=== PATIENT | female | born 1995 ===

== ENCOUNTER 2020-05-17 11:28 | Emergency (ER) | payer MEDICARE, MEDICAID, SELFPAY ==
[2020-05-17 11:42] VITALS: BP 150/75; PULSE 63; RESP 18; TEMP 36.7; O2SAT 99; BMI 26.6
--- NOTE | 2020-05-17 12:08 | ED.GENADULT ---
HPI - General Adult General Chief complaint: General Medical Stated complaint: std Time Seen by Provider: 05/17/20 11:40 Source: patient Mode of arrival: ambulatory Limitations: no limitations History of Present Illness HPI narrative: 24 yo female here with genital itching and urinary frequency. She tells me 3 days ago she had unprotected sex with a female partner. She does not have any male partners and is not concerned for . No vaginal discharge, bumps, rashes, pelvic pain, vomiting, fevers, chills. Onset (ago): day(s) Treatments prior to arrival: none Related Data Allergies Allergy/AdvReac Type Severity Reaction Status Date / Time penicillin V Allergy Unknown hives Verified 02/20/20 14:45 Penicillins [PENICILLINS] Allergy Unknown HIVES Verified 02/20/20 14:45 Review of Systems Review of Systems: Yes all other systems are reviewed and are negative Constitutional: Constitutional: Reports no additional constitutional complaints, Denies body ache(s), Denies chills, Denies fever(s), Denies headache(s) and Denies weakness Eyes: Eyes: Reports no additional eye complaints and Denies change in vision ENT: Reports system reviewed and no additional complaints, except as documented, Denies dizziness, Denies headache(s), Denies nasal congestion, Denies nasal discharge and Denies neck pain Cardiovascular: Cardiovascular: Reports no additional cardiovascular complaints, Denies chest pain, Denies leg edema and Denies dyspnea Respiratory: Respiratory: Reports no additional respiratory complaints, Denies cough and Denies dyspnea Gastrointestinal: Gastrointestinal: Reports no additional gastrointestinal complaints, Denies abdominal pain, Denies diarrhea, Denies nausea and Denies vomiting Genitourinary: Genitourinary: Reports no additional female genitourinary complaints, Denies difficulty voiding, Denies dysuria, Denies pelvic pain, Denies flank pain, Denies urinary incontinence, Denies vaginal discharge, Denies vaginal odor and Reports vaginal pruritus Musculoskeletal: Musculoskeletal: Reports no additional musculoskeletal complaints, Denies back pain, Denies arthralgias, Denies joint swelling, Denies neck pain, Denies numbness and Denies tingling Integumentary/Breasts: Skin/Breast: Reports system reviewed and no additional complaints, except as docu and Denies rash Neurologic: Reports system reviewed and no additional complaints, except as documented, Denies Abnormal speech present, Denies dizziness, Denies headache(s), Denies numbness, Denies tingling and Denies weakness PMFSH Past Medical History Attestation statement: The following information was validated with the patient. Source: old records reviewed and nursing notes reviewed Medical History Asthma Surgical History No pertinent past surgical history Family History Family History Father Liver failure H/O ETOH abuse Drug addiction Mother Cancer Drug addiction Brother Drug overdose Social History Social History Advance Directives: No Advance Directives Information Provided: Yes Physical Exam Vital Signs: Vital Signs: Last Vital Signs Temp 98.1 F 05/17/20 11:42 Pulse 63 05/17/20 11:42 Resp 18 05/17/20 11:42 BP 150/75 H 05/17/20 11:42 Pulse Ox 99 05/17/20 11:42 Body Mass Index 26.6 Const: General: cooperative, healthy appearing, comfortable and no acute distress Orientation/consciousness: patient oriented x3 Limitations: no limitations HENMT: Head: Yes normal to inspection Ears: hearing grossly normal bilaterally General nose exam: Normal external nose present Face and sinus: Yes normal facial exam Mouth: Normal oral and palatal mucosa present Throat: Yes posterior oropharynx normal Eyes: General: appearance normal, both eyes and all related structures Pupils: Equal, round and reactive pupils present Neck: Neck: Yes normal visual inspection Chest: Chest palpation & inspection: normal inspection of the chest Resp: Effort & Inspection: normal respiratory effort Auscultation: clear to auscultation bilaterally Cardio: Rate: regular rate Rhythm: regular rhythm Peripheral pulses: Peripheral pulses 2+ throughout GI: Inspection: Yes normal to inspection Palpation (GI): Soft to palpation and nontender Auscultation: normal bowel sounds : Other: deferred by patient Back/Spine/Pelvis: Thoracic/Lumbar Spine: thoracic and lumbar spine normal to inspection Skin: General skin exam: no rashes or lesions noted Neuro: General: patient oriented x3, no focal motor deficits and normal sensation to monofilament Cranial nerves: Yes Equal, round and reactive pupils present Cognition (Neuro): normal cognition Speech: No Abnormal speech present Gait exam (Neuro): Normal gait present Motor exam (neuro): 5/5 motor strength present throughout Extrem: General: Yes normal to inspection Course Course Course Narrative: 24 yo female recent unprotected sex with a female partner here with urinary frequency, vaginal itching x several days. Will check UA, GC urine, BV panel. Patient would like to defer treatment and is aware she will need to return for treatment if needed. [id number] negative for infection. Again patient deferred treatment. Reviewed worrisome signs and symptoms and when to return to the emergency department. Comfortable discharge home. Medical Decision Making Medical Records Medical records reviewed: Yes I reviewed the patient's medical records. Lab Data Lab results reviewed: Yes I reviewed the patient's lab results. Labs: Lab Results 05/17/20 05/17/20 Range/Units 12:26 12:26 Urine Color YELLOW Urine Appearance CLEAR Urine pH 5.5 (5.0-8.0) Ur Specific [place] >= 1.030 H (1.005-1.025) Urine Protein NEG (NEG-TRACE) MG/DL Urine Glucose (UA) NEG (NEG) MG/DL Urine Ketones NEG (NEG) MG/DL Urine Blood 1+ H (NEG) Urine Nitrite NEG (NEG) Ur Leukocyte Esterase NEG (NEG) Urine RBC 0-2 (0) /HPF Urine WBC 0-2 (0-4) /HPF Ur Squamous Epith Cells 1+ /LPF Urine Bacteria TRACE /LPF Urine Mucus 2+ /LPF Chlam trachomat DNA PCR Cancelled N.gonorrhoeae DNA (PCR) Cancelled Discharge Plan Discharge Clinical Impression: Concern about STD in female without diagnosis Patient Disposition: Home, Self-Care Instructions: Sexually Transmitted Diseases (ED) Additional Instructions: We have tested you today for gonorrhea/chlamydia, and vaginal infections in most women. We will call you if these are positive. If you are positive for gonorrhea you will need to return for an injection. If you are positive for all else we can call in a prescription for pills. Avoid sex until you know what your results are. If positive you will need a re-test in 7 days at [facility]. Referrals: Physician,Unknown [Primary Care Provider] - 2 days Interventions: ED Discharge Assessment Last Done: 05/17/20 13:22 Discharge Date/Time: 05/17/20 13:22
[2020-05-17 12:37] LABS: Glucose Urine UA NEG (NEG); Leukocyte Esterase Urine NEG (NEG); Nitrite Urine NEG (NEG); PH 5.5 (5.0-8.0); Specific Gravity - Urine >= 1.030 (1.005-1.025); Urine Blood 1+ (NEG); Urine Ketones NEG (NEG); Urine Protein NEG (NEG-TRACE)
[2020-05-17 12:39] LABS: Appearance Urine CLEAR; Color Urine YELLOW
[2020-05-17 12:52] LABS: Bacteria Urine TRACE /LPF; Mucus Urine 2+ /LPF; RBC Urine 0-2 /HPF (0); Squamous Epithelial Cell Urine 1+ /LPF; WBC Urine 0-2 /HPF (0-4)
[2020-05-18 09:31] LABS: BV Int Neg Control Negative (Negative); BV Int Pos Control Positive (Positive)
[2020-05-19 01:22] LABS: C. trachomatis RNA TMA NOT DETECTED (NOT DETECTED); N. gonorrhoeae RNA TMA NOT DETECTED (NOT DETECTED)
== END 2020-05-17 13:22 | disposition home or self-care (01) ==
PROVIDERS: Nurse Practitioner Family; Emergency Provider Emergency Medicine
DX: Z11.3 Encounter for screening for infections with a predominantly sexual mode of transmission (principal)
CPT/HCPCS: 36415; 81001; 87480; 87491; 87510; 87591; 87660; 99283

== ENCOUNTER 2020-06-06 19:41 | Emergency (ER) | payer MEDICARE, MEDICAID, SELFPAY ==
--- NOTE | ~2020-06-06 | CT_ITS ---
EXAMINATION: CT SOFT TISSUE NECK WITH CONTRAST CLINICAL INFORMATION: Lower face and neck swelling. Retropharyngeal abscess. Dental abscess COMPARISON: None TECHNIQUE: Following the intravenous administration of 100 mL of Omnipaque 350 intravenous contrast, helical imaging was performed in the axial plane with generation of coronal and sagittal reformatted images. This CT examination was performed using dose optimization techniques as appropriate, variously including the following: *Automated exposure control *Adjustment of mA and/or kV according to patient size (this includes techniques or standardized protocols for targeted exams where dose is matched to indication/reason for exam; i.e. extremities or head) *Use of iterative reconstruction technique DLP: 415 mGy-cm FINDINGS: No cervical adenopathy is identified. The parotid glands are homogeneous in attenuation. The submandibular glands are normal. No contour abnormality or pathologic enhancement is seen within the oral cavity or pharyngeal mucosal space. The laryngeal structures are normal. The parapharyngeal fat is preserved. The carotid sheath vasculature opacify normally. Symmetric prominent bilateral tonsillar soft tissues. No extra mucosal soft tissue mass or fluid collection is seen. No retropharyngeal fluid collection is seen. 4 mm low-density lesion posteriorly in the left thyroid.. The superior mediastinum is unremarkable. There is a right maxillary sinus mucous retention cyst or polyp. No acute sinusitis. The mastoid air cells and visualized portions of the paranasal sinuses are otherwise well-aerated. There are prominent subcutaneous venous collaterals in the anterior aspect of the upper chest and lower neck but no venous obstruction seen. The temporomandibular joints are normal. No periapical disease is identified. No osseous abnormalities are seen. The imaged portions of the brain parenchyma are unremarkable. 4 mm right upper lobe nodule, likely benign without a history of known primary malignancy given the patient's age. CT/CT soft tissue neck w con IMPRESSION: There are prominent subcutaneous venous collaterals in the anterior upper chest and lower neck but no venous obstruction seen. No retropharyngeal abscess. No periapical lucency to suggest periodontal disease.
[2020-06-06 19:51] VITALS: BP 118/88; BP 122/77; PULSE 84; PULSE 89; RESP 16; TEMP 36.2; O2SAT 98; O2SAT 99; BMI 25.7
[2020-06-06 20:38] LABS: MANUAL DIFF FLAG NO
[2020-06-06 20:39] LABS: Basophils Percent Auto 0.3 % (0-2); Eosinophils Absolute Auto 0.1 X10*3/uL (0.0-0.4); Eosinophils Percent Auto 0.6 % (0-4); Hematocrit 40.8 % (37-47); Hemoglobin 14.1 g/dl (12.0-16.0); Imm Gran Abs Auto 0.06 X10*3/uL (0.00-0.03); Imm Gran Pct Auto 0.5 % (0.0-0.4); Lymphocytes Absolute Auto 1.5 X10*3/uL (1.2-4.9); Mean Corpuscular HGB Conc 34.6 g/dl (31.0-35.0); Mean Corpuscular Hemoglobin 32.6 pg (27.0-33.0); Mean Corpuscular Volume 94.2 fL (80-98); Mean Platelet Volume 9.6 fL (9.4-12.3); Monocytes Absolute Auto 0.6 X10*3/uL (0.1-1.2); Monocytes Percent Auto 5.1 % (2-11); Neutrophils Absolute Auto 9.5 X10*3/uL (2.0-8.3); Neutrophils Percent Auto 80.5 % (45-73); Platelet Count 172 X10*3/uL (160-400); Red Blood Count 4.33 X10*6/uL (4.20-5.50); White Blood Count 11.8 X10*3/uL (4.8-10.8)
[2020-06-06] MEDS: Clindamycin Phosphate/D5W 600 MG/50 ML PIGGYBACK 100 MG IV (20:41)
[2020-06-06] MEDS: 0.9 % Sodium Chloride 1,000 ML 999 ML IV (20:41)
[2020-06-06] MEDS: Ketorolac Tromethamine 30 MG/ML VIAL IVPUSH (20:41)
[2020-06-06 20:47] LABS: INTERNATIONAL NORM RATIO 1.1 (0.9-1.1); Prothrombin Time 12.8 SEC (10.8-13.0)
[2020-06-06 20:50] LABS: Partial Thromboplastin Time 34.4 SEC (24.1-38.0)
[2020-06-06 21:03] LABS: Alanine Aminotransferase 46 U/L (0-31); Albumin Level 4.1 g/dL (3.5-5.0); Alkaline Phosphatase 91 U/L (39-117); Anion Gap 15 (12-20); Aspartate Amino Transferase 49 U/L (5-31); Bilirubin Total 1.7 mg/dL (0.0-1.0); Blood Urea Nitrogen 11 mg/dL (9-16); Calcium 8.8 mg/dL (8.4-10.2); Carbon Dioxide 22 mmol/L (22-29); Chloride 107 mmol/L (96-108); Creatinine Clr Calc Pharmacy 131.2; Estimated Glomerular Filt Rate > 60; Glucose Random 86 mg/dL (60-115); Potassium 4.2 mmol/L (3.3-5.1); Sodium 140 mmol/L (135-145); Total Protein 6.5 g/dL (6.5-8.0)
[2020-06-06 21:09] LABS: HCG Quantitative < 2 mIU/mL
--- NOTE | 2020-06-06 21:48 | ED.GENADULT ---
HPI - General Adult General Chief complaint: Dental/Oral Stated complaint: mouth pain Time Seen by Provider: 06/06/20 19:53 Source: patient Mode of arrival: ambulatory Limitations: no limitations History of Present Illness HPI narrative: Patient presents to ED for right lower facial swelling since yesterday that is painful. Patient states she does believe her neck is swollen also. He denies any recent trauma to the face, itchy sensation of throat, itchiness of skin, rash, shortness of breath, tongue swelling, or lip swelling. Patient denies any chest pain, shortness of breath, headache, ear pain, or dizziness. Related Data Previous Rx's Medication Instructions Recorded metronidazole [Flagyl] 500 mg PO Q12H #14 tab 05/20/20 clindamycin HCl 300 mg PO Q8H #30 cap 06/06/20 naproxen 500 mg PO BID PRN #20 tab 06/06/20 Allergies Allergy/AdvReac Type Severity Reaction Status Date / Time penicillin V Allergy Unknown hives Verified 06/06/20 19:51 Penicillins [PENICILLINS] Allergy Unknown HIVES Verified 06/06/20 19:51 Review of Systems Review of Systems: Yes all other systems are reviewed and are negative Constitutional: Constitutional: Reports as per HPI and Reports no additional constitutional complaints Eyes: Eyes: Reports as per HPI and Reports no additional eye complaints ENT: Reports system reviewed and no additional complaints, except as documented and Reports as per HPI Comments: Right facial swelling Cardiovascular: Cardiovascular: Reports as per HPI and Reports no additional cardiovascular complaints Respiratory: Respiratory: Reports as per HPI and Reports no additional respiratory complaints Gastrointestinal: Gastrointestinal: Reports as per HPI and Reports no additional gastrointestinal complaints Genitourinary: Genitourinary: Reports no additional female genitourinary complaints and Reports as per HPI Musculoskeletal: Musculoskeletal: Reports no additional musculoskeletal complaints and Reports as per HPI Neurologic: Reports system reviewed and no additional complaints, except as documented and Reports as per HPI Psychiatric: Psychiatric: Reports no additional psychiatric complaints and Reports as per HPI PMF Past Medical History Medical History Asthma Surgical History No pertinent past surgical history Family History Family History Father Liver failure H/O ETOH abuse Drug addiction Mother Cancer Drug addiction Brother Drug overdose Social History Social History Smoking Status: Current every day smoker Use of substances other than those prescribed or required for medical reasons: No Advance Directives: No Physical Exam Vital Signs: Vital Signs: Last Vital Signs Temp 96.5 F L 06/06/20 22:00 Pulse 84 06/06/20 22:00 Resp 16 06/06/20 22:00 BP 106/61 06/06/20 22:00 Pulse Ox 98 06/06/20 22:00 Body Mass Index 25.7 Const: General: cooperative, healthy appearing, comfortable, no acute distress, well developed, alert, awake and Physically active Orientation/consciousness: patient oriented x3 HENMT: Other: Positive for swelling of right lower side of face, but negative for any erythema or mass on palpation. Negative for any gum swelling, erythema, or mass. Negative for any caries or cracked tooth. Negative for any obvious tooth infection Neck does not appear swollen. Lips negative for swelling. Tongue negative for swelling. Uvula is midline. Tonsils are not swollen and negative for erythema or exudates. Both ears negative for signs of otitis media, otitis externa, tympanic perforation, or mastoiditis. Head: Yes normal to inspection, Yes No palpable skull fracture present, Yes normocephalic, Yes atraumatic and No abrasion Eyes: General: appearance normal, both eyes and all related structures Neck: Neck: Yes normal visual inspection, Yes full ROM, Yes no lymphadenopathy, Yes no meningeal signs, Yes trachea midline, Yes supple and No tender Resp: Effort & Inspection: normal respiratory effort and able to speak in complete sentences Auscultation: clear to auscultation bilaterally Cardio: Jugular venous distension: no JVD Heart sounds: S1 normal heart sound present and S2 normal heart sound present GI: Inspection: Yes normal to inspection and No abdominal wall ecchymosis Palpation (GI): Soft to palpation, not firm, nontender, no guarding and not rigid : General: No CVA tenderness and Yes no CVA tenderness Back/Spine/Pelvis: Back: no CVA tenderness, No CVA tenderness and No back tenderness Skin: General skin exam: no rashes or lesions noted and elasticity normal Neuro: General: patient oriented x3, gait normal, no meningeal signs and CN's II-XI intact bilaterally Cranial nerves: Yes CN's II-XII intact bilaterally Extrem: General: Yes normal to inspection and Yes full ROM Psych: Appearance: grossly normal, well kempt and not disheveled Course Course Course Narrative: Negative for obvious signs of facial or oral abscess. Will send for facial CT and have basic labs. Patient start IV clindamycin. Differential is facial cellulitis. Reevaluation(s) Reevaluation #1: Soft tissue neck negative for CT negative any periodontal or retropharyngeal abscess. Parotid glands are normal. Findings for any peritonsillar abscess. Diagnosis facial cellulitis. Patient discharged with antibiotics and pain meds. Patient speaking in full sentences and not in any respiratory distress. Patient not actively drooling. Patient informed she could follow up with dentist to make sure there is any wisdom tooth impaction. But no obvious signs of infection on physical exam for wisdom impaction. Time: 23:24 Medical Decision Making [facility] Narrative Medical decision making narrative: Facial cellulitis Lab Data Result diagrams: 06/06/20 20:25 06/06/20 20:25 Labs: Lab Results 06/06/20 06/06/20 06/06/20 Range/Units 20:25 20:25 20:25 WBC 11.8 H (4.8-10.8) X10*3/uL RBC 4.33 (4.20-5.50) X10*6/uL Hgb 14.1 (12.0-16.0) g/dl Hct 40.8 (37-47) % MCV 94.2 (80-98) fL MCH 32.6 (27.0-33.0) pg MCHC 34.6 (31.0-35.0) g/dl RDW 13.0 (11.0-16.0) % Plt Count 172 (160-400) X10*3/uL MPV 9.6 (9.4-12.3) fL Immature Gran % (Auto) 0.5 H (0.0-0.4) % Neut % (Auto) 80.5 H (45-73) % Lymph % (Auto) 13.0 L (20-40) % [place] % (Auto) 5.1 (2-11) % Eos % (Auto) 0.6 (0-4) % Baso % (Auto) 0.3 (0-2) % Lymph # (Auto) 1.5 (1.2-4.9) X10*3/uL [place] # (Auto) 0.6 (0.1-1.2) X10*3/uL Eos # (Auto) 0.1 (0.0-0.4) X10*3/uL Baso # (Auto) 0.0 (0.0-0.2) X10*3/uL Abs Immat Gran (auto) 0.06 H (0.00-0.03) X10*3/uL Absolute Neuts (auto) 9.5 H (2.0-8.3) X10*3/uL Absolute Nucleated RBC 0.000 (0.0-0.012) X10*3/uL Nucleated RBC % (auto) 0.0 (0.0-0.2) /100WBC PT 12.8 (10.8-13.0) SEC INR 1.1 (0.9-1.1) APTT 34.4 (24.1-38.0) SEC Sodium 140 (135-145) mmol/L Potassium 4.2 (3.3-5.1) mmol/L Chloride 107 (96-108) mmol/L Carbon Dioxide 22 (22-29) mmol/L Anion Gap 15 (12-20) BUN 11 (9-16) mg/dL Creatinine 0.65 (0.5-1.4) mg/dL Estim Creat Clear Calc 131.2 Estimated GFR > 60 Random Glucose 86 (60-115) mg/dL Calcium 8.8 (8.4-10.2) mg/dL Total Bilirubin 1.7 H (0.0-1.0) mg/dL AST 49 H (5-31) U/L ALT 46 H (0-31) U/L Alkaline Phosphatase 91 (39-117) U/L Total Protein 6.5 (6.5-8.0) g/dL Albumin 4.1 (3.5-5.0) g/dL Beta HCG, Quant mIU/mL 06/06/20 Range/Units 20:25 WBC (4.8-10.8) X10*3/uL RBC (4.20-5.50) X10*6/uL Hgb (12.0-16.0) g/dl Hct (37-47) % MCV (80-98) fL MCH (27.0-33.0) pg MCHC (31.0-35.0) g/dl RDW (11.0-16.0) % Plt Count (160-400) X10*3/uL MPV (9.4-12.3) fL Immature Gran % (Auto) (0.0-0.4) % Neut % (Auto) (45-73) % Lymph % (Auto) (20-40) % [place] % (Auto) (2-11) % Eos % (Auto) (0-4) % Baso % (Auto) (0-2) % Lymph # (Auto) (1.2-4.9) X10*3/uL [place] # (Auto) (0.1-1.2) X10*3/uL Eos # (Auto) (0.0-0.4) X10*3/uL Baso # (Auto) (0.0-0.2) X10*3/uL Abs Immat Gran (auto) (0.00-0.03) X10*3/uL Absolute Neuts (auto) (2.0-8.3) X10*3/uL Absolute Nucleated RBC (0.0-0.012) X10*3/uL Nucleated RBC % (auto) (0.0-0.2) /100WBC PT (10.8-13.0) SEC INR (0.9-1.1) APTT (24.1-38.0) SEC Sodium (135-145) mmol/L Potassium (3.3-5.1) mmol/L Chloride (96-108) mmol/L Carbon Dioxide (22-29) mmol/L Anion Gap (12-20) BUN (9-16) mg/dL Creatinine (0.5-1.4) mg/dL Estim Creat Clear Calc Estimated GFR Random Glucose (60-115) mg/dL Calcium (8.4-10.2) mg/dL Total Bilirubin (0.0-1.0) mg/dL AST (5-31) U/L ALT (0-31) U/L Alkaline Phosphatase (39-117) U/L Total Protein (6.5-8.0) g/dL Albumin (3.5-5.0) g/dL Beta HCG, Quant < 2 mIU/mL Discharge Plan Discharge Clinical Impression: Facial cellulitis Patient Disposition: Home, Self-Care Instructions: Cellulitis (ED) Additional Instructions: Return to the ED immediately for worsening facial swelling, drooling, shortness of breath, tongue swelling, lip swelling, chest pain, weakness, fever, chills, inability tolerate solid food/liquid, or any other concerning symptoms. No obvious signs of dental infection but if necessary follow-up with dentist. Follow-up with PCP. CT scan of the neck and face was negative for any dental or retropharyngeal abscess. CT scan negative for peritonsillar abscess. Prescriptions: New clindamycin HCl 300 mg capsule 300 mg PO Q8H Qty: 30 RF: 0 naproxen 500 mg tablet 500 mg PO BID PRN (Reason: pain) Qty: 20 RF: 0 No Action metronidazole [Flagyl] 500 mg tablet 500 mg PO Q12H Qty: 14 RF: 0 Stand Alone Forms: Work/School Release Interventions: ED Discharge Assessment Last Done: 06/07/20 00:03 Discharge Date/Time: 06/07/20 00:06 Print Language: Bel[place]ian
[2020-06-06 22:00] VITALS: BP 106/61; PULSE 84; RESP 16; TEMP 35.8; O2SAT 98
[2020-06-06] MEDS: iohexoL 350 MG/ML 100 ML INFUS..BTL IV (22:02)
== END 2020-06-07 00:06 | disposition home or self-care (01) ==
PROVIDERS: Physician Assistant; Emergency Provider Internal Medicine
DX: K12.2 Cellulitis and abscess of mouth (principal); F17.200 Nicotine dependence, unspecified, uncomplicated
CPT/HCPCS: 36415; 70491; 80053; 84702; 85025; 85610; 85730; 87040; 96361; 96374; 96375; 99284; J1885; Q9967

== ENCOUNTER 2020-08-11 14:38 | Emergency (ER) | payer OTHER, SELFPAY ==
--- NOTE | 2020-08-11 15:40 | PC.NURSE ---
1ST CALL TO [facility] NOT IN WR
[2020-08-11 15:41] VITALS: BP 122/84; PULSE 73; RESP 16; TEMP 36.6; O2SAT 98; BMI 25.0
--- NOTE | 2020-08-11 16:46 | ED.EYEPROB ---
HPI - Eye Problem General Chief complaint: Eye Problems Stated complaint: PINK EYE Time Seen by Provider: 08/11/20 16:46 Source: patient Mode of arrival: ambulatory Limitations: no limitations History of Present Illness HPI Narrative: Woke up with some crust in the right eye and vaginally over the past 2 days became more red and crusty discharge. Tried some OTC medication did not help. Denies any contact usage, foreign body concern. No vision loss or changes. No headache. Isolated to the right eye. MD chief complaint: eye redness Onset description: gradual Duration: constant Location: right eye Eye Symptoms: redness and discharge Mechanism: none Severity: moderate Associated symptoms: none Treatments Prior to Arrival: none Related Data Previous Rx's Medication Instructions Recorded metronidazole [Flagyl] 500 mg PO Q12H #14 tab 05/20/20 clindamycin HCl 300 mg PO Q8H #30 cap 06/06/20 naproxen 500 mg PO BID PRN #20 tab 06/06/20 erythromycin 0.5 inch OPHTHALMIC (EYE) Q4H #3.5 08/11/20 g Allergies Allergy/AdvReac Type Severity Reaction Status Date / Time penicillin V Allergy Unknown hives Verified 06/06/20 19:51 Penicillins [PENICILLINS] Allergy Unknown HIVES Verified 06/06/20 19:51 Review of Systems Review of Systems: Constitutional: No Weight loss, No Fever, No Chills, No Night Sweats, No Fatigue, No Malaise ENT/Mouth: No Hearing loss, No Ear Pain, No Nasal Congestion, No Sinus Pain, No Hoarseness, No sore throat, No Rhinorrhea, No Swallowing Difficulty Eyes: No Eye Pain, No Swelling, + Redness, No Foreign Body, No Discharge, No Vision Changes Cardiovascular: No Chest Pain, No SOB, No Dyspnea on Exertion, No Orthopnea, No Edema, No Palpitations Respiratory: No Cough, No Sputum, No Wheezing, No Smoke Exposure, No Dyspnea Gastrointestinal: No Nausea, No Vomiting, No Diarrhea, No Constipation, No abdominal Pain, No Hematochezia, No Melena Genitourinary: Negative Musculoskeletal: No joint pain, No Myalgias, No Joint Swelling Skin: No Skin Lesions, No rash Neuro: No Weakness, No Numbness, No Paresthesias, No Loss of Consciousness, No Dizziness, No Headache Psych: No Social Issues Heme/Lymph: No Bruising, No Bleeding,No Lymphadenopathy Endocrine: No Polyuria, No Polydipsia, No Temperature Intolerance [facility] Past Medical History Medical History Asthma Surgical History No pertinent past surgical history Family History Family History Father Liver failure H/O ETOH abuse Drug addiction Mother Cancer Drug addiction Brother Drug overdose Social History Social History Smoking Status: Current every day smoker Advance Directives: No Advance Directives Information Provided: Yes Physical Exam Vital Signs: Vital Signs: Last Vital Signs Temp 98 F 08/11/20 15:41 Pulse 73 08/11/20 15:41 Resp 16 08/11/20 15:41 BP 122/84 08/11/20 15:41 Pulse Ox 98 08/11/20 15:41 Body Mass Index 25.0 Reviewed Const: General: cooperative, healthy appearing, comfortable, no acute distress, well developed, alert and awake HENMT: Head: Yes normal to inspection Ears: hearing grossly normal bilaterally Eyes: General: appearance normal, both eyes and all related structures Visual Sen: normal visual sen by confrontation Eyelids: Yes eyelids normal Conjunctivae: conjunctival abnormal (Slightly injected and erythematous) right Sclerae: sclerae normal Corneas: corneas normal Pupils: Equal, round and reactive pupils present EOM: EOMs intact bilaterally Direct Ophthalmoscopy: normal light reflex Neck: Neck: Yes normal visual inspection Chest: Chest palpation & inspection: normal inspection of the chest and normal palpation of entire chest wall Resp: Effort & Inspection: normal respiratory effort, no audible wheezes, no cough and no respiratory distress Skin: General skin exam: no rashes or lesions noted, elasticity normal and turgor normal Wounds: no wounds Nails: normal Neuro: General: normal sensation to monofilament Cranial nerves: Yes Equal, round and reactive pupils present Extrem: General: No cyanosis Psych: Appearance: grossly normal and well kempt Discharge Plan Discharge Clinical Impression: Bacterial conjunctivitis Patient Disposition: Home, Self-Care Instructions: Conjunctivitis (ED) Additional Instructions: User eye ointment to the right eye every 4 hours while awake Keep hands clean and dry Return if any concerns or symptoms otherwise follow up with primary care doctor discussed Thank you Prescriptions: New erythromycin 5 mg/gram (0.5 %) ointment 0.5 inch ophthalmic (eye) Q4H Qty: 3.5 RF: 1 No Action metronidazole [Flagyl] 500 mg tablet 500 mg PO Q12H Qty: 14 RF: 0 clindamycin HCl 300 mg capsule 300 mg PO Q8H Qty: 30 RF: 0 naproxen 500 mg tablet 500 mg PO BID PRN (Reason: pain) Qty: 20 RF: 0 Referrals: ED Physician,Generic [Emergency Provider] - 1 week
== END 2020-08-11 17:25 | disposition home or self-care (01) ==
PROVIDERS: Emergency Provider Emergency Medicine
DX: H10.31 Unspecified acute conjunctivitis, right eye (principal); H57.11 Ocular pain, right eye
CPT/HCPCS: 99283

== ENCOUNTER 2020-12-08 14:14 | Inpatient (IN) | payer OTHER, SELFPAY ==
[2020-12-08] VITALS (7 sets, daily range): BP systolic 98–135; BP diastolic 56–83; PULSE 73–107; RESP 14–20; TEMP 36.3; O2SAT 97–100; BMI 25.0
--- NOTE | 2020-12-08 14:38 | PC.NURSE ---
pt not SI at this time was last night feeling more depressed
--- NOTE | 2020-12-08 15:14 | ECG_ITS ---
Test Reason : OVERDOSE Blood Pressure : / mmHG Vent. Rate : 073 BPM Atrial Rate : 073 BPM P-R Int : 132 ms QRS Dur : 092 ms QT Int : 460 ms P-R-T Axes : 070 064 036 degrees QTc Int : 506 ms Normal sinus rhythm Prolonged QT Abnormal ECG When compared with ECG of 23-JAN-2019 05:25, T wave inversion no longer evident in Inferior leads Referred By: Leatha Condon Electronically Signed By:MANDO MARINO MD
[2020-12-08] MEDS: 0.9 % Sodium Chloride 1,000 ML 999 ML IVCONT (15:30)
--- NOTE | 2020-12-08 15:40 | PC.NURSE ---
Contact made to [facility] at 1530: aleks haines : Monitor Qtc to be less than 500 ideally, mag level to be greater than 2 and K greater than 4. If less, electolyte replacement is to be ordered. Take serial asa levels 2 hrs, until peak is noted and clearly declining. ASA level greater than 30- Start alkalizing urine by administering sodium bicarb Greater than 60-call nephrology Greater than 90-emergent dialysis is needed. Concerns for clindamycin- monitor renal function and consider gi upset. Concerns for naproxen- monitor renal function and metabolic acidosis.
--- NOTE | 2020-12-08 16:09 | ED.OVERDOSE ---
HPI - Overdose General Chief Complaint: Overdose Stated Complaint: Overdose Time Seen by Provider: 12/08/20 15:13 Source: patient and EMS Mode of arrival: EMS Limitations: no limitations History of Present Illness HPI Narrative: Patient is brought to the emergency room by EMS. According to the patient, she took approximately 20 aspirins, unknown amount of naproxen, unknown amount of clindamycin, all this in a suicide attempt, patient took this approximately between 03:00 and 05:00 (approximately 12 hours ago). Patient states after the suicide attempt, she went to sleep, when she woke up she was very nauseous, vomiting. Patient denies abdominal pain, no diarrhea. Patient states that approximately 1 month ago, she had medical , and since then she has been depressed and not doing well. She reports having suicidal attempts in the past. Patient states she is being seen by a therapist but does not have a psychiatrist, has not been on any medications for depression/anxiety. Related Data Home Medications Medication Instructions Recorded Confirmed No Known Home Meds 11/30/20 11/30/20 Allergies Allergy/AdvReac Type Severity Reaction Status Date / Time penicillin V Allergy Unknown hives Verified 11/30/20 10:15 Penicillins [PENICILLINS] Allergy Unknown HIVES Verified 11/30/20 10:15 Review of Systems Review of Systems: Constitutional : No Weight loss, No Fever, No Chills, No Night Sweats, No Fatigue, No Malaise ENT/Mouth : No Hearing loss, No Ear Pain, No Nasal Congestion, No Sinus Pain, No Hoarseness, No sore throat, No Rhinorrhea, No Swallowing Difficulty Eyes: No Eye Pain, No Swelling, No Redness, No Foreign Body, No Discharge, No Vision Changes Cardiovascular : No Chest Pain, No SOB, No Dyspnea on Exertion, No Orthopnea, No Edema, No Palpitations Respiratory : No Cough, No Sputum, No Wheezing, No Smoke Exposure, No Dyspnea Gastrointestinal : Complaining of nausea vomiting, No Diarrhea, No Constipation, No abdominal Pain, No Hematochezia, No Melena Genitourinary : no irregular bleeding, No Dysuria, No Urinary Frequency, No Hematuria, No Urinary Incontinence, No Urgency, No Flank Pain, No Urinary Flow Changes, No Hesitancy Musculoskeletal : No joint pain, No Myalgias, No Joint Swelling Skin : No Skin Lesions, No rash Neuro : No Weakness, No Numbness, No Paresthesias, No Loss of Consciousness, No Dizziness, No Headache Psych : Complaining depression, anxiety, suicide attempt, no HI Heme/Lymph: No Bruising, No Bleeding,No Lymphadenopathy Endocrine : No Polyuria, No Polydipsia, No Temperature Intolerance PMFSH Past Medical History Medical History Asthma Screening for diabetes mellitus Screening for hyperlipidemia Screening for hypothyroidism Surgical History No pertinent past surgical history Family History Family History Father Liver failure H/O ETOH abuse Drug addiction Mother Cancer Drug addiction Brother Drug overdose Social History Social History (Updated 11/30/20 @ 10:18 by NAYELI Rice) Alcohol intake: current Alcohol intake frequency: holidays/special occasions only Patient Tobacco Use Status: Current everyday Tobacco user Advance Directives: No Advance Directives Information Provided: Yes Physical Exam Vital Signs: Vital Signs: Last Vital Signs Temp 97.4 F 12/08/20 17:06 Pulse 74 12/08/20 17:06 Resp 20 12/08/20 17:06 BP 123/65 12/08/20 17:06 Pulse Ox 98 12/08/20 17:06 Body Mass Index 25.0 Course Course Course Narrative: It has been over 12 hours since patient ingested the medications. All the labs are pending. Poison Control has been contacted Patient's salicylate level is 42.6, we will go ahead and order 1 bolus of sodium bicarbonate and IV infusion. I discussed the patient with Dr. Owen, patient being admitted. At this time, the ABGs are still pending. Patient is on a Section 12 MDM - Overdose Lab Data Result diagrams: 12/08/20 16:25 12/08/20 15:57 Labs: Lab Results 12/08/20 12/08/20 12/08/20 Range/Units 15:57 15:57 15:57 WBC (4.8-10.8) X10*3/uL RBC (4.20-5.50) X10*6/uL Hgb (12.0-16.0) g/dl Hct (37-47) % MCV (80-98) fL MCH (27.0-33.0) pg MCHC (31.0-35.0) g/dl RDW (11.0-16.0) % Plt Count (160-400) X10*3/uL MPV (9.4-12.3) fL Immature Gran % (Auto) (0.0-0.4) % Neut % (Auto) (45-73) % Lymph % (Auto) (20-40) % [place] % (Auto) (2-11) % Eos % (Auto) (0-4) % Baso % (Auto) (0-2) % Lymph # (Auto) (1.2-4.9) X10*3/uL [place] # (Auto) (0.1-1.2) X10*3/uL Eos # (Auto) (0.0-0.4) X10*3/uL Baso # (Auto) (0.0-0.2) X10*3/uL Abs Immat Gran (auto) (0.00-0.03) X10*3/uL Absolute Neuts (auto) (2.0-8.3) X10*3/uL Absolute Nucleated RBC (0.0-0.012) X10*3/uL Nucleated RBC % (auto) (0.0-0.2) /100WBC PT 12.2 (9.9-13.0) SEC INR 1.1 (0.9-1.1) Sodium 144 (135-145) mmol/L Potassium 4.6 (3.3-5.1) mmol/L Chloride 108 (96-108) mmol/L Carbon Dioxide 18 L (22-29) mmol/L Anion Gap 23 H (12-20) BUN 16 (9-16) mg/dL Creatinine 1.00 (0.5-1.4) mg/dL Estim Creat Clear Calc 78.0 Estimated GFR > 60 Random Glucose 79 (60-115) mg/dL Lactic Acid 1.6 (0.5-2.0) mmol/L Calcium 9.4 D (8.4-10.2) mg/dL Magnesium (1.6-2.6) mg/dL Total Bilirubin 0.6 (0.0-1.0) mg/dL Direct Bilirubin 0.3 (0.0-0.5) mg/dL AST 44 H (5-31) U/L ALT 37 H (0-31) U/L Alkaline Phosphatase 82 (39-117) U/L Ammonia (13-55) umol/L Total Protein 8.0 D (6.5-8.0) g/dL Albumin 5.0 D (3.5-5.0) g/dL Lipase 19 (8-78) U/L Salicylates (15-30) mg/dL Acetaminophen (<30) mcg/mL Ethyl Alcohol mg/dL 12/08/20 12/08/20 12/08/20 Range/Units 15:57 15:57 16:25 WBC 14.2 H (4.8-10.8) X10*3/uL RBC 4.67 (4.20-5.50) X10*6/uL Hgb 15.6 (12.0-16.0) g/dl Hct 44.8 (37-47) % MCV 95.9 (80-98) fL MCH 33.4 H (27.0-33.0) pg MCHC 34.8 (31.0-35.0) g/dl RDW 13.8 (11.0-16.0) % Plt Count 214 (160-400) X10*3/uL MPV 9.5 (9.4-12.3) fL Immature Gran % (Auto) 0.7 H (0.0-0.4) % Neut % (Auto) 89.2 H (45-73) % Lymph % (Auto) 6.6 L (20-40) % [place] % (Auto) 3.4 (2-11) % Eos % (Auto) 0.0 (0-4) % Baso % (Auto) 0.1 (0-2) % Lymph # (Auto) 0.9 L (1.2-4.9) X10*3/uL [place] # (Auto) 0.5 (0.1-1.2) X10*3/uL Eos # (Auto) 0.0 (0.0-0.4) X10*3/uL Baso # (Auto) 0.0 (0.0-0.2) X10*3/uL Abs Immat Gran (auto) 0.10 H (0.00-0.03) X10*3/uL Absolute Neuts (auto) 12.7 H (2.0-8.3) X10*3/uL Absolute Nucleated RBC 0.000 (0.0-0.012) X10*3/uL Nucleated RBC % (auto) 0.0 (0.0-0.2) /100WBC PT (9.9-13.0) SEC INR (0.9-1.1) Sodium (135-145) mmol/L Potassium (3.3-5.1) mmol/L Chloride (96-108) mmol/L Carbon Dioxide (22-29) mmol/L Anion Gap (12-20) BUN (9-16) mg/dL Creatinine (0.5-1.4) mg/dL Estim Creat Clear Calc Estimated GFR Random Glucose (60-115) mg/dL Lactic Acid (0.5-2.0) mmol/L Calcium (8.4-10.2) mg/dL Magnesium 2.3 (1.6-2.6) mg/dL Total Bilirubin (0.0-1.0) mg/dL Direct Bilirubin (0.0-0.5) mg/dL AST (5-31) U/L ALT (0-31) U/L Alkaline Phosphatase (39-117) U/L Ammonia (13-55) umol/L Total Protein (6.5-8.0) g/dL Albumin (3.5-5.0) g/dL Lipase (8-78) U/L Salicylates 42.6 H* (15-30) mg/dL Acetaminophen < 1 (<30) mcg/mL Ethyl Alcohol < 10 mg/dL 12/08/20 Range/Units 16:25 WBC (4.8-10.8) X10*3/uL RBC (4.20-5.50) X10*6/uL Hgb (12.0-16.0) g/dl Hct (37-47) % MCV (80-98) fL MCH (27.0-33.0) pg MCHC (31.0-35.0) g/dl RDW (11.0-16.0) % Plt Count (160-400) X10*3/uL MPV (9.4-12.3) fL Immature Gran % (Auto) (0.0-0.4) % Neut % (Auto) (45-73) % Lymph % (Auto) (20-40) % [place] % (Auto) (2-11) % Eos % (Auto) (0-4) % Baso % (Auto) (0-2) % Lymph # (Auto) (1.2-4.9) X10*3/uL [place] # (Auto) (0.1-1.2) X10*3/uL Eos # (Auto) (0.0-0.4) X10*3/uL Baso # (Auto) (0.0-0.2) X10*3/uL Abs Immat Gran (auto) (0.00-0.03) X10*3/uL Absolute Neuts (auto) (2.0-8.3) X10*3/uL Absolute Nucleated RBC (0.0-0.012) X10*3/uL Nucleated RBC % (auto) (0.0-0.2) /100WBC PT (9.9-13.0) SEC INR (0.9-1.1) Sodium (135-145) mmol/L Potassium (3.3-5.1) mmol/L Chloride (96-108) mmol/L Carbon Dioxide (22-29) mmol/L Anion Gap (12-20) BUN (9-16) mg/dL Creatinine (0.5-1.4) mg/dL Estim Creat Clear Calc Estimated GFR Random Glucose (60-115) mg/dL Lactic Acid (0.5-2.0) mmol/L Calcium (8.4-10.2) mg/dL Magnesium (1.6-2.6) mg/dL Total Bilirubin (0.0-1.0) mg/dL Direct Bilirubin (0.0-0.5) mg/dL AST (5-31) U/L ALT (0-31) U/L Alkaline Phosphatase (39-117) U/L Ammonia 23 (13-55) umol/L Total Protein (6.5-8.0) g/dL Albumin (3.5-5.0) g/dL Lipase (8-78) U/L Salicylates (15-30) mg/dL Acetaminophen (<30) mcg/mL Ethyl Alcohol mg/dL Discharge Plan Discharge Clinical Impression: Overdose of salicylate, Metabolic acidosis due to salicylate, Suicide attempt Patient Disposition: Admitted As Inpatient Prescriptions: No Action No Known Home Meds RF: 0
[2020-12-08 16:14] LABS: INTERNATIONAL NORM RATIO 1.1 (0.9-1.1); Prothrombin Time 12.2 SEC (9.9-13.0)
[2020-12-08 16:31] LABS: Lactic Acid 1.6 mmol/L (0.5-2.0)
[2020-12-08 16:34] LABS: Ethanol < 10 mg/dL
[2020-12-08 16:35] LABS: MANUAL DIFF FLAG NO
[2020-12-08 16:37] LABS: Basophils Percent Auto 0.1 % (0-2); Hematocrit 44.8 % (37-47); Hemoglobin 15.6 g/dl (12.0-16.0); Imm Gran Pct Auto 0.7 % (0.0-0.4); Lymphocytes Absolute Auto 0.9 X10*3/uL (1.2-4.9); Lymphocytes Percent Auto 6.6 % (20-40); Mean Corpuscular HGB Conc 34.8 g/dl (31.0-35.0); Mean Corpuscular Hemoglobin 33.4 pg (27.0-33.0); Mean Corpuscular Volume 95.9 fL (80-98); Mean Platelet Volume 9.5 fL (9.4-12.3); Monocytes Absolute Auto 0.5 X10*3/uL (0.1-1.2); Monocytes Percent Auto 3.4 % (2-11); Neutrophils Absolute Auto 12.7 X10*3/uL (2.0-8.3); Neutrophils Percent Auto 89.2 % (45-73); Platelet Count 214 X10*3/uL (160-400); Red Blood Count 4.67 X10*6/uL (4.20-5.50); Red Cell Distribution Width 13.8 % (11.0-16.0); White Blood Count 14.2 X10*3/uL (4.8-10.8)
[2020-12-08 16:40] LABS: Acetaminophen LAB < 1 mcg/mL (<30); Magnesium 2.3 mg/dL (1.6-2.6); Salicylate 42.6 mg/dL (15-30)
[2020-12-08 16:42] LABS: Alanine Aminotransferase 37 U/L (0-31); Alkaline Phosphatase 82 U/L (39-117); Anion Gap 23 (12-20); Aspartate Amino Transferase 44 U/L (5-31); Bilirubin Direct 0.3 mg/dL (0.0-0.5); Bilirubin Total 0.6 mg/dL (0.0-1.0); Blood Urea Nitrogen 16 mg/dL (9-16); Calcium 9.4 mg/dL (8.4-10.2); Carbon Dioxide 18 mmol/L (22-29); Chloride 108 mmol/L (96-108); Estimated Glomerular Filt Rate > 60; Glucose Random 79 mg/dL (60-115); Lipase 19 U/L (8-78); Potassium 4.6 mmol/L (3.3-5.1); Sodium 144 mmol/L (135-145)
[2020-12-08] MEDS: Prochlorperazine Edisylate 10 MG/2 ML VIAL IVPUSH (16:44)
[2020-12-08 16:52] LABS: Ammonia 23 umol/L (13-55)
[2020-12-08] MEDS: Sodium Bicarbonate 8.4% 50 MEQ/50 ML VIAL 100 MEQ IVPUSH (17:12)
--- NOTE | 2020-12-08 17:15 | PC.NURSE ---
hospitalist at bedside
[2020-12-08 17:18] LABS: Glucose Urine UA NEG (NEG); Leukocyte Esterase Urine NEG (NEG); Nitrite Urine NEG (NEG); PH 6.5 (5.0-8.0); Specific Gravity - Urine >= 1.030 (1.005-1.025); UACC Culture Trigger NO; Urine Blood 3+ (NEG); Urine Ketones >=80 MG/DL (NEG); Urine Protein 2+ MG/DL (NEG-TRACE)
[2020-12-08 17:21] LABS: Appearance Urine HAZY; Color Urine YELLOW
[2020-12-08 17:24] LABS: UPreg QC Valid YES; Urine Pregnancy POSITIVE (NEGATIVE)
[2020-12-08 17:32] LABS: Bacteria Urine TRACE /LPF; Squamous Epithelial Cell Urine 1+ /LPF; WBC Urine 0-2 /HPF (0-4)
[2020-12-08 17:42] LABS: Amphetamine Screen Urine Not Detected (Not Detect); Barbiturates, Urine Not Detected (Not Detect); Benzodiazepines Screen Urine Not Detected (Not Detect); Cannabinoid Screen Urine POSITIVE (Not Detect); Cocaine Screen Urine POSITIVE (Not Detect); Fentanyl, urine Not Detected (Not Detect); Opiate Screen Urine Not Detected (Not Detect); Phencyclidine Screen Urine Not Detected (Not Detect)
[2020-12-08] MEDS: Sodium Bicarbonate 8.4% 150 MEQ in Dextrose 5 % 850 ML 100 MEQ IV (18:20)
[2020-12-08 18:42] LABS: ABG Base Excess -0.7 mmol/L; ABG HCO3 20 mmol/L (22-26); ABG pCO2 25 mmHg (32-45); ABG pCO2 TC 25 mmHg (32-45); ABG pH TC 7.51 (7.35-7.45); ABG pO2 147 mmHg (83-108); ABG pO2 TC 143 (83-108)
--- NOTE | 2020-12-08 18:43 | PC.NURSE ---
per patient what the fuck? i didn't know i could from this when asked to expand upon above statement pt stated I thought it would only kill me in the momement.
[2020-12-08 19:12] LABS: HCG Quantitative 15 mIU/mL
--- NOTE | 2020-12-08 19:18 | PC.NURSE ---
Posion control: iris 1900 Give Charcoal 1g/kg Repeat charcoal in 4hrs if need monitor serum ph to keep between 7.45-7.55 Urine PH 7.5-8 Monitor k with bicarb drip due to potential to drop. Continue q 2hr blood draws for asa level. monitor asa if between 80-90, dialysis is needed emergency, monitor for neuro symptoms in addition. MD notified.
--- NOTE | 2020-12-08 19:25 | PC.NURSE ---
md craft-no to eliane.
--- NOTE | 2020-12-08 19:38 | PC.NURSE ---
Iris from posion control called back Nolan ACOSTA recommends to treat with charcoal. Provider aware; due to timing provider stated it is not nessicary to give acyteldote and charcoal due to timing of injestion and that the patient did not consume tylenol. Plan to track down [facility] if possible.
[2020-12-08 19:43] LABS: Anion Gap 19 (12-20); Blood Urea Nitrogen 18 mg/dL (9-16); Calcium 8.4 mg/dL (8.4-10.2); Carbon Dioxide 24 mmol/L (22-29); Chloride 105 mmol/L (96-108); Creatinine Clr Calc Pharmacy 90.7; Estimated Glomerular Filt Rate > 60; Glucose Random 204 mg/dL (60-115); Potassium 3.8 mmol/L (3.3-5.1); Sodium 144 mmol/L (135-145)
[2020-12-08 19:44] LABS: Osmolality, Serum 305 mosm/kg (281-305)
[2020-12-08 20:00] LABS: Influenza A PCR NEGATIVE (Negative); Influenza B PCR NEGATIVE (Negative); Resp Syncy Virus RNA Qual PCR NEGATIVE (Negative); SARS COV2 PCR INHOUSE NEGATIVE (Negative)
[2020-12-08] MEDS: Famotidine/PF 20 MG/2 ML VIAL IVPUSH (20:09)
--- NOTE | 2020-12-08 20:24 | HP_ITS ---
DATE OF SERVICE: 12/08/2020 CHIEF COMPLAINT: Salicylate overdose. HISTORY OF PRESENTING ILLNESS: This is a 25-year-old female patient of Dr. Bush, who was seen at PCP office 1 week ago for a wellness check. The patient was brought into [facility] today by her friend due to intractable nausea and vomiting. According to the patient, she took unknown quantity of aspirin, Naprosyn, and clindamycin as a suicide attempt roughly at 3 a.m. After that, she went to sleep and she woke up with intractable nausea, vomiting. Her friend saw her and brought her to the emergency room. According to patient, she has been depressed and not doing well with prior history of suicide attempts in the past. In the ER, workup revealed that she has an elevated salicylate level of 42.6. Her urine tox was positive for cocaine and marijuana. Her labs showed anion gap metabolic acidosis with normal renal function. Mildly elevated AST and ALT. Her urinalysis is positive for 10 to 14 rbc, urine test is positive, although the ER physician was told by patient's friend that she had a medical done a few weeks ago. PAST MEDICAL HISTORY: Significant for asthma. PAST SURGICAL HISTORY: She has had no surgeries done in the past. FAMILY HISTORY: Father is . He of liver failure and had history of alcohol dependence and drug addiction. Mother is . She had leukemia. Brother is due to drug overdose. SOCIAL HISTORY: She lives alone. She smokes a couple of cigarettes a day. She also drinks alcohol 3 to 4 times per week. She smokes weeds few times a week. She denied use of other illicit drugs. However, as mentioned, urine toxicology positive for cocaine. ALLERGIES: SHE IS ALLERGIC TO PENICILLIN THAT CAUSES HIVES. MEDICATIONS: The patient do not take any home medications. REVIEW OF SYSTEMS: TOP FRAME FITTER: She denies any headache, but complains of dizziness. CVS: She denies chest pain or palpitation. GI: She continued to have nausea, vomiting. Denies abdominal pain. No diarrhea. : She denies urinary symptoms of urgency and frequency. SKIN: She denies any rashes or itching. Rest of all other systems are reviewed and are negative. PHYSICAL EXAMINATION: GENERAL: The patient is awake and alert, at times does not respond to questions and start putting on her socks. Does not make eye contacts, very restless. VITALS: Her blood pressure is 123/65, pulse of 74, respiratory rate 20, afebrile, O2 saturation 98% on room air. HEENT: Pupils equal, round, and reactive to light and accommodation. NECK: Supple. No JVD. No lymphadenopathy. LUNGS: Clear to auscultation. HEART: Regular rate and rhythm. ABDOMEN: Soft. Multiple striae due to stretching likely from . EXTREMITIES: No edema. NEURO: The patient is awake, alert. Speech is clear. Moving all 4 extremities. SKIN: No rash. LABORATORY DATA: Salicylate level 42.6. WBC 42326, hemoglobin 15.6, hematocrit 44, platelet count of 214. Sodium 144, potassium 4.6, anion gap 23, bicarb 18, BUN 16, and a creatinine of 1. Lactic acid 1.6, AST 44, ALT 37, albumin 5.. EKG showed no acute ischemic changes. Normal sinus rhythm, prolonged QT. ASSESSMENT AND PLAN: This is a 25-year-old female patient, who presented to [facility] with intractable nausea, vomiting, after overdosing on salicylates, Naprosyn, and unknown amount of clindamycin with suicidal ideation. 1. Salicylate overdose. The patient will be admitted to telemetry unit. She has been started on IV bicarb drip, will continue to monitor salicylate level every 2 hours and BMP q.4 hours, continue bicarb drip. We will check serum osmolality, urinary pH. Consulted Nephrology. Case discussed with them,they will follow the patient along with us. If the patient noted to have worsening shortness of breath, we will place her on BiPAP. If the patient has worsening salicylate level, then she will require hemodialysis. 2. Anion gap metabolic acidosis due to salicylate toxicity. We will follow ABGs, not obtained, will adjust IV fluids according to the ABG level. We will have low threshold for transferring her to ICU with any change in mental status or respiratory depression. 3. History of substance use. The patient's urine tox positive for cocaine and marijuana. We will obtain care team consult. 4. History of alcohol dependence. As per patient, she only drinks a few times a week with no prior history of DTs or seizures, we will place CIWA protocol. 5. Positive urine test. According to friend, the patient had a medical few weeks ago. We will check serum hCG level. We will avoid medications that are teratogenic. 6. Deep vein thrombosis prophylaxis. Early ambulation will be recommended. MD JW Pryor/ANA / [id number] MTDD
[2020-12-08 20:38] LABS: Salicylate 27.8 mg/dL (15-30)
[2020-12-08 21:33] LABS: ABG Refer to POC result
[2020-12-08 21:36] LABS: Salicylate 25.2 mg/dL (15-30)
[2020-12-08 22:24] LABS: Salicylate 24.6 mg/dL (15-30)
--- NOTE | 2020-12-08 22:26 | PC.NURSE ---
Per pharmacy: 3rd and 4th dose of sodium bicarb drip is in fridge under inventory count of tylenol 120mg rect suppository.
--- NOTE | 2020-12-08 22:47 | PC.NURSE ---
Per hospitalist, draw mery level now.
--- NOTE | 2020-12-08 22:56 | PC.NURSE ---
Per poison control: hold 3rd dose activated charcoal, due to 3 asa levels being below 30mg/dl okay to stop bicarb. Redraw K level and consider K replacement. At this point, as long as the asa level continues to down trend, pt is cleared by poison control. Per hospitalist: Contintue bicarb drip as nephrology ordered at 150ml/hr. at this time Draw BMP.
--- NOTE | 2020-12-08 23:03 | PC.NURSE ---
phlebotomy: contacted for BMP. Peng to come draw patient.
[2020-12-08 23:29] LABS: Salicylate 22.3 mg/dL (15-30)
[2020-12-08 23:48] LABS: Anion Gap 16 (12-20); Blood Urea Nitrogen 17 mg/dL (9-16); Calcium 8.3 mg/dL (8.4-10.2); Carbon Dioxide 24 mmol/L (22-29); Chloride 105 mmol/L (96-108); Creatinine Clr Calc Pharmacy 84.8; Estimated Glomerular Filt Rate > 60; Glucose Random 124 mg/dL (60-115); Potassium 3.3 mmol/L (3.3-5.1); Sodium 142 mmol/L (135-145)
[2020-12-09] VITALS (10 sets, daily range): BP systolic 96–128; BP diastolic 49–75; PULSE 54–81; RESP 12–20; TEMP 36.4–37.2; O2SAT 98–100
[2020-12-09] MEDS: Sodium Bicarbonate 8.4% 150 MEQ in Dextrose 5 % 850 ML 100 MEQ IV (01:02)
[2020-12-09] MEDS: 0.9 % Sodium Chloride Flush 3 ML SYRINGE IVFLUSH ×2 (01:04→07:22)
--- NOTE | 2020-12-09 01:05 | PC.NURSE ---
per poison control: consider K replacement due to lab value being 3.3
--- NOTE | 2020-12-09 01:07 | PC.NURSE ---
Hospitalist notified of pc reccomendations.
[2020-12-09] MEDS: Potassium Chloride/H20 10 MEQ/100 ML PIGGYBACK 100 MEQ IV ×4 (01:21→04:42)
--- NOTE | 2020-12-09 03:53 | PC.NURSE ---
REPORT TAKEN FROM MARIELY GUTIERREZ. FIRST CONTACT WITH PT. RESTING IN BED, EASILY AWOKE, SKIN PWD RESPIRATIONS EVEN UNLABORED.A&Ox3. MEDICATED PER MAR. IVF INFUSING WITHOUT DIFFICULTY. VSS. AWAITING REPEAT LABS. PO AT BEDSIDE FOR SAFETY.
--- NOTE | 2020-12-09 06:05 | PC.NURSE ---
PT CONTINUES TO REST IN BED EYES CLOSED SKIN PWD, RESPIRATIONS EVEN UNLABORED.VSS, WILL CONTINUE TO MONITOR.
--- NOTE | 2020-12-09 07:39 | PC.NURSE ---
pt a/o x 3 no sob/ghada noted skin pink warm dry speaks in full sentence. pt denies any si/hi. pt aware of plan for admission to hosp.
--- NOTE | 2020-12-09 08:06 | P.CONNP_ITS ---
History of Present Illness Reason for Consult Consult date: 12/09/20 Chief Complaint Chief complaint: Overdose History of Present Illness Narrative: 25-year-old female patient of Dr. Bush, who was seen at PCP office 1 week ago for a wellness check.? The patient was brought into [facility] today by her friend due to intractable nausea and vomiting.? According to the patient, she took unknown quantity of aspirin, Naprosyn, and clindamycin as a suicide attempt roughly at 3 a.m.? After that, she went to sleep and she woke up with intractable nausea, vomiting.? Her friend saw her and brought her to the emergency room.? According to patient, she has been depressed and not doing well with prior history of suicide attempts in the past.? In the ER, workup revealed that she has an elevated salicylate level of 42.6.? Her urine tox was positive for cocaine and marijuana.? Her labs showed anion gap metabolic acidosis with normal renal function.? Mildly elevated AST and ALT. Her urinalysis is positive for 10 to 14 rbc, urine test is positive, Review of Systems Review of Systems Constitutional : No Weight loss, No Fever, No Chills, No Night Sweats, No Fatigue, No Malaise ENT/Mouth : No Hearing loss, No Ear Pain, No Nasal Congestion, No Sinus Pain, No Hoarseness, No sore throat, No Rhinorrhea, No Swallowing Difficulty Eyes: No Eye Pain, No Swelling, No Redness, No Foreign Body, No Discharge, No Vision Changes Cardiovascular : No Chest Pain, No SOB, No Dyspnea on Exertion, No Orthopnea, No Edema, No Palpitations Respiratory : No Cough, No Sputum, No Wheezing, No Smoke Exposure, No Dyspnea Gastrointestinal : Complaining of nausea vomiting, No Diarrhea, No Constipation, No abdominal Pain, No Hematochezia, No Melena Genitourinary : no irregular bleeding, No Dysuria, No Urinary Frequency, No Hematuria, No Urinary Incontinence, No Urgency, No Flank Pain, No Urinary Flow Changes, No Hesitancy Musculoskeletal : No joint pain, No Myalgias, No Joint Swelling Skin : No Skin Lesions, No rash Neuro : No Weakness, No Numbness, No Paresthesias, No Loss of Consciousness, No Dizziness, No Headache Psych : Complaining depression, anxiety, suicide attempt, no HI Heme/Lymph: No Bruising, No Bleeding,No Lymphadenopathy Endocrine : No Polyuria, No Polydipsia, No Temperature Intolerance [facility] Past Medical History Medical History Asthma Screening for diabetes mellitus Screening for hyperlipidemia Screening for hypothyroidism Family History Family History Father Liver failure H/O ETOH abuse Drug addiction Mother Cancer Drug addiction Brother Drug overdose Surgical History Surgical History No pertinent past surgical history Social History Social History (Updated 11/30/20 @ 10:18 by NAYELI Rice) Alcohol intake: current Alcohol intake frequency: 0-2 drinks per day Patient Tobacco Use Status: Current everyday Tobacco user Use of substances other than those prescribed or required for medical reasons: Yes Substance Use Type: Crack/Cocaine and Marijuana Advance Directives: No Advance Directives Information Provided: Yes Meds Allergies Allergy/AdvReac Type Severity Reaction Status Date / Time penicillin V Allergy Unknown hives Verified 11/30/20 10:15 Penicillins [PENICILLINS] Allergy Unknown HIVES Verified 11/30/20 10:15 Active Medications: Current Medications Generic Name Dose Route Start Last Admin Trade Name Freq PRN Reason Stop Dose Admin Famotidine 20 mg 12/08/20 21:00 12/08/20 20:09 Famotidine/Pf 20 Mg/2 Ml Vial IVPUSH 20 mg BID FELICITAS Administration Sodium Bicarbonate 150 meq/ 1,000 mls @ 150 mls/hr 12/08/20 17:00 12/09/20 01:02 Dextrose IV 100 mls/hr .[id number] FELICITAS Administration Lorazepam 0.5 mg 12/08/20 17:56 Lorazepam 2 Mg/Ml Vial IVPUSH Q6H PRN Anxiety Ondansetron HCl 4 mg 12/08/20 17:49 Ondansetron Hcl 4 Mg/2 Ml Vial IVPUSH Q8H PRN Nausea and Vomiting Sodium Chloride 3 ml 12/09/20 00:00 12/09/20 07:22 0.9 % Sodium Chloride Flush 3 Ml Syringe IVFLUSH 3 ml QSHIFT FELICITAS Administration Home Medications Medication Instructions Recorded Confirmed Last Taken Type No Known Home Meds 11/30/20 12/08/20 Unknown History Physical Exam Vital Signs: Last Vital Signs Temp 98.1 F 12/09/20 07:23 Pulse 75 12/09/20 07:23 Resp 12 12/09/20 07:23 BP 96/51 L 12/09/20 07:23 Pulse Ox 100 12/09/20 07:23 Body Mass Index 25.0 Results Lab Results Result Diagrams: 12/08/20 16:25 12/08/20 23:15 Lab results: Chemistry 12/08/20 12/08/20 12/08/20 15:57 18:59 23:15 Sodium 144 144 142 Potassium 4.6 3.8 3.3 Carbon Dioxide 18 L 24 24 BUN 16 18 H 17 H Creatinine 1.00 0.86 0.92 Calcium 9.4 D 8.4 D 8.3 L Hematology 12/08/20 16:25 WBC 14.2 H Hgb 15.6 Plt Count 214 Urinalysis 12/08/20 17:08 Urine Color YELLOW Urine Appearance HAZY Urine pH 6.5 Ur Specific [place] >= 1.030 H Urine Protein 2+ H Urine Glucose (UA) NEG Urine Ketones >=80 Urine Blood 3+ H Urine Nitrite NEG Ur Leukocyte Esterase NEG Urine RBC 10-14 H Urine WBC 0-2 Ur Squamous Epith Cells 1+ Assessment and Plan (1) Overdose of salicylate: Status: Acute (2) Metabolic acidosis due to salicylate: Status: Acute (3) Suicide attempt: Status: Acute continue iv bicarb give 500 mg diamox iv to alkalize the urine Procedures Date of Service Date of Service: 12/09/20
[2020-12-09 08:21] LABS: Hematocrit 38.6 % (37-47); Hemoglobin 13.5 g/dl (12.0-16.0); Mean Corpuscular Hemoglobin 33.2 pg (27.0-33.0); Mean Corpuscular Volume 94.8 fL (80-98); Mean Platelet Volume 9.7 fL (9.4-12.3); Platelet Count 177 X10*3/uL (160-400); Red Blood Count 4.07 X10*6/uL (4.20-5.50); Red Cell Distribution Width 13.7 % (11.0-16.0)
[2020-12-09 08:42] LABS: Anion Gap 11 (12-20); Blood Urea Nitrogen 11 mg/dL (9-16); Calcium 8.3 mg/dL (8.4-10.2); Carbon Dioxide 29 mmol/L (22-29); Chloride 104 mmol/L (96-108); Creatinine Clr Calc Pharmacy 89.7; Estimated Glomerular Filt Rate > 60; Glucose Random 109 mg/dL (60-115); Potassium 3.5 mmol/L (3.3-5.1); Sodium 140 mmol/L (135-145)
[2020-12-09] MEDS: Sodium Bicarbonate 8.4% 150 MEQ in Dextrose 5 % 850 ML IV (10:15)
[2020-12-09] MEDS: Famotidine/PF 20 MG/2 ML VIAL IVPUSH ×2 (10:17→19:56)
--- NOTE | 2020-12-09 11:13 | PC.NURSE ---
pt is medically cleared per dr. beltran. [facility] paperwork to be faxed.
[2020-12-09] MEDS: 0.9 % Sodium Chloride 1,000 ML 125 ML IVCONT (11:15)
--- NOTE | 2020-12-09 13:22 | PM.CNNEP ---
History of Present Illness Reason for Consult Consult date: 12/09/20 Reason for consult: asa OD Chief Complaint Chief complaint: Overdose History of Present Illness Narrative: ?25-year-old female patient of Dr. Bush, who was seen at PCP office 1 week ago for a wellness check.? The patient was brought into [facility] today by her friend due to intractable nausea and vomiting.? According to the patient, she took unknown quantity of aspirin, Naprosyn, and clindamycin as a suicide attempt roughly at 3 a.m.? After that, she went to sleep and she woke up with intractable nausea, vomiting.? Her friend saw her and brought her to the emergency room.? According to patient, she has been depressed and not doing well with prior history of suicide attempts in the past.? In the ER, workup revealed that she has an elevated salicylate level of 42.6.? Her urine tox was positive for cocaine and marijuana.? Her labs showed anion gap metabolic acidosis with normal renal function.? Mildly elevated AST and ALT. Her urinalysis is positive for 10 to 14 rbc, urine test is positive, although the ER physician was told by patient's friend that she had a medical done a few weeks ago. Review of Systems Review of Systems Constitutional : No Weight loss, No Fever, No Chills, No Night Sweats, No Fatigue, No Malaise ENT/Mouth : No Hearing loss, No Ear Pain, No Nasal Congestion, No Sinus Pain, No Hoarseness, No sore throat, No Rhinorrhea, No Swallowing Difficulty Eyes: No Eye Pain, No Swelling, No Redness, No Foreign Body, No Discharge, No Vision Changes Cardiovascular : No Chest Pain, No SOB, No Dyspnea on Exertion, No Orthopnea, No Edema, No Palpitations Respiratory : No Cough, No Sputum, No Wheezing, No Smoke Exposure, No Dyspnea Gastrointestinal : Complaining of nausea vomiting, No Diarrhea, No Constipation, No abdominal Pain, No Hematochezia, No Melena Genitourinary : no irregular bleeding, No Dysuria, No Urinary Frequency, No Hematuria, No Urinary Incontinence, No Urgency, No Flank Pain, No Urinary Flow Changes, No Hesitancy Musculoskeletal : No joint pain, No Myalgias, No Joint Swelling Skin : No Skin Lesions, No rash Neuro : No Weakness, No Numbness, No Paresthesias, No Loss of Consciousness, No Dizziness, No Headache Psych : Complaining depression, anxiety, suicide attempt, no HI Heme/Lymph: No Bruising, No Bleeding,No Lymphadenopathy Endocrine : No Polyuria, No Polydipsia, No Temperature Intolerance PMFSH Past Medical History Medical History Asthma Screening for diabetes mellitus Screening for hyperlipidemia Screening for hypothyroidism Family History Family History Father Liver failure H/O ETOH abuse Drug addiction Mother Cancer Drug addiction Brother Drug overdose Surgical History Surgical History No pertinent past surgical history Social History Social History (Updated 11/30/20 @ 10:18 by NAYELI Rice) Alcohol intake: current Alcohol intake frequency: 0-2 drinks per day Patient Tobacco Use Status: Current everyday Tobacco user Use of substances other than those prescribed or required for medical reasons: Yes Substance Use Type: Crack/Cocaine and Marijuana Advance Directives: No Advance Directives Information Provided: Yes Meds Allergies Allergy/AdvReac Type Severity Reaction Status Date / Time penicillin V Allergy Unknown hives Verified 11/30/20 10:15 Penicillins [PENICILLINS] Allergy Unknown HIVES Verified 11/30/20 10:15 Active Medications: Current Medications Generic Name Dose Route Start Last Admin Trade Name Freq PRN Reason Stop Dose Admin Famotidine 20 mg 12/08/20 21:00 12/09/20 10:17 Famotidine/Pf 20 Mg/2 Ml Vial IVPUSH 20 mg BID FELICITAS Administration Sodium Chloride 1,000 mls @ 125 mls/hr 12/09/20 11:15 12/09/20 11:15 Ns IVCONT 125 mls/hr .Q8H FELICITAS Administration Lorazepam 0.5 mg 12/08/20 17:56 Lorazepam 2 Mg/Ml Vial IVPUSH Q6H PRN Anxiety Ondansetron HCl 4 mg 12/08/20 17:49 Ondansetron Hcl 4 Mg/2 Ml Vial IVPUSH Q8H PRN Nausea and Vomiting Sodium Chloride 3 ml 12/09/20 00:00 12/09/20 07:22 0.9 % Sodium Chloride Flush 3 Ml Syringe IVFLUSH 3 ml QSHIFT FELICITAS Administration Home Medications Medication Instructions Recorded Confirmed Last Taken Type No Known Home Meds 11/30/20 12/08/20 Unknown History Physical Exam Vital Signs: Last Vital Signs Temp 99.0 F 12/09/20 10:11 Pulse 78 12/09/20 13:05 Resp 16 12/09/20 13:05 BP 110/59 L 12/09/20 13:05 Pulse Ox 98 12/09/20 13:05 Body Mass Index 25.0 Results Lab Results Result Diagrams: 12/09/20 08:15 12/09/20 08:15 Lab results: Chemistry 12/08/20 12/08/20 12/08/20 15:57 18:59 23:15 Sodium 144 144 142 Potassium 4.6 3.8 3.3 Carbon Dioxide 18 L 24 24 BUN 16 18 H 17 H Creatinine 1.00 0.86 0.92 Calcium 9.4 D 8.4 D 8.3 L 12/09/20 08:15 Sodium 140 Potassium 3.5 Carbon Dioxide 29 BUN 11 Creatinine 0.87 Calcium 8.3 L Hematology 12/08/20 12/09/20 16:25 08:15 WBC 14.2 H 10.0 Hgb 15.6 13.5 Plt Count 214 177 Urinalysis 12/08/20 17:08 Urine Color YELLOW Urine Appearance HAZY Urine pH 6.5 Ur Specific [place] >= 1.030 H Urine Protein 2+ H Urine Glucose (UA) NEG Urine Ketones >=80 Urine Blood 3+ H Urine Nitrite NEG Ur Leukocyte Esterase NEG Urine RBC 10-14 H Urine WBC 0-2 Ur Squamous Epith Cells 1+ Assessment and Plan (1) Overdose of salicylate: Status: Acute alkalinize urine with normal hco3 diamox 500 mg IV to increase urine PH (2) Metabolic acidosis due to salicylate: Status: Acute (3) Suicide attempt: Status: Acute continue iv bicarb give 500 mg diamox iv to alkalize the urine Procedures Date of Service Date of Service: 12/09/20
--- NOTE | 2020-12-09 16:25 | HO.PM.IMPN ---
Subjective Subjective Date of Service: 12/09/20 Interval History: Patient complaining of heartburn, and epigastric discomfort, no nausea no vomiting, feels depressed and requesting for help. Review of Systems General no headache, no dizziness, no fever chills. CVS no chest pain, no palpitation. Respiratory no cough, no sob. Gastrointestinal no nausea, no vomiting, epigastric pain Physical Exam Vital Signs: Vital Signs: Last Vital Signs Temp 97.5 F 12/09/20 15:59 Pulse 54 12/09/20 15:59 Resp 18 12/09/20 15:59 BP 122/60 12/09/20 15:59 Pulse Ox 99 12/09/20 15:59 Body Mass Index 25.0 25-year-old female patient, who presented to [facility] with intractable nausea, vomiting, after overdosing on salicylates, Naprosyn, and unknown amount of clindamycin with suicidal ideation. 1. Intentional drug overdose.? Patient ingested unknown amount of salicylate, clindamycin and Naprosyn, treated with IV bicarb drip, Tylenol level normalized, renal function stable Will DC IV bicarb drip, encourage fluids, replace potassium Due to epigastric pain will add PPI and Maalox Obtain care team consult and psych consult since patient feels depressed and wants to be treated 2. Anion gap metabolic acidosis due to salicylate toxicity.? Aniongap closed, acidosis resolved , will DC bicarb drip, renal function is stable 3. History of substance use.? The patient's urine tox positive for cocaine and marijuana.?await care team evaluation 4. History of alcohol dependence.? No withdrawal symptoms, continue CIWA 5. Positive urine test.? Status post 4 weeks, normal serum hcg level 6. Deep vein thrombosis prophylaxis.? Early ambulation will be recommended. ? Objective Data Current Medications Generic Name Dose Route Start Last Admin Trade Name Freq PRN Reason Stop Dose Admin Famotidine 20 mg 12/08/20 21:00 12/09/20 10:17 Famotidine/Pf 20 Mg/2 Ml Vial IVPUSH 20 mg BID FELICITAS Administration Sodium Chloride 1,000 mls @ 125 mls/hr 12/09/20 11:15 12/09/20 11:15 Ns IVCONT 125 mls/hr .Q8H FELICITAS Administration Lorazepam 0.5 mg 12/08/20 17:56 Lorazepam 2 Mg/Ml Vial IVPUSH Q6H PRN Anxiety Ondansetron HCl 4 mg 12/08/20 17:49 Ondansetron Hcl 4 Mg/2 Ml Vial IVPUSH Q8H PRN Nausea and Vomiting Sodium Chloride 3 ml 12/09/20 00:00 12/09/20 07:22 0.9 % Sodium Chloride Flush 3 Ml Syringe IVFLUSH 3 ml QSHIFT FELICITAS Administration Labs CBC & Chem 7: 12/09/20 08:15 12/09/20 08:15 Labs: Laboratory Results - last 24 hr 12/08/20 12/08/20 12/08/20 15:57 15:57 15:57 MCV MCH MCHC RDW Plt Count MPV Immature Gran % (Auto) Neut % (Auto) Lymph % (Auto) [place] % (Auto) Eos % (Auto) Baso % (Auto) Lymph # (Auto) [place] # (Auto) Eos # (Auto) Baso # (Auto) Abs Immat Gran (auto) Absolute Neuts (auto) Absolute Nucleated RBC Nucleated RBC % (auto) O2 Saturation ABG pH at Pt Temp ABG pH (Temp Correct) ABG pCO2 at Pt Temp ABG pCO2 (Temp Corrct ABG pO2 at Pt Temp ABG pO2 (Temp Correct ABG HCO3 ABG Base Excess (Actual) Anion Gap 23 H Estim Creat Clear Calc 78.0 Estimated GFR > 60 Random Glucose 79 Osmolality Lactic Acid 1.6 Calcium 9.4 D Magnesium 2.3 Total Bilirubin 0.6 Direct Bilirubin 0.3 AST 44 H ALT 37 H Alkaline Phosphatase 82 Ammonia Total Protein 8.0 D Albumin 5.0 D Lipase 19 Beta HCG, Quant 15 Urine Color Urine Appearance Urine pH Ur Specific [place] Urine Protein Urine Glucose (UA) Urine Ketones Urine Blood Urine Nitrite Ur Leukocyte Esterase Urine RBC Urine WBC Ur Squamous Epith Cells Urine Bacteria Urine Test Salicylates 42.6 H* Urine Opiates Screen Urine Fentanyl Screen Acetaminophen < 1 Ur Barbiturates Screen Ur Phencyclidine Scrn Ur Amphetamines Screen U Benzodiazepines Scrn Urine Cocaine Screen U Marijuana (THC) Screen Ethyl Alcohol Coronavirus (PCR) Influenza Type A (PCR) Influenza Type B (PCR) RSV RNA Qual (PCR) 12/08/20 12/08/20 12/08/20 15:57 16:25 16:25 MCV 95.9 MCH 33.4 H MCHC 34.8 RDW 13.8 Plt Count 214 MPV 9.5 Immature Gran % (Auto) 0.7 H Neut % (Auto) 89.2 H Lymph % (Auto) 6.6 L [place] % (Auto) 3.4 Eos % (Auto) 0.0 Baso % (Auto) 0.1 Lymph # (Auto) 0.9 L [place] # (Auto) 0.5 Eos # (Auto) 0.0 Baso # (Auto) 0.0 Abs Immat Gran (auto) 0.10 H Absolute Neuts (auto) 12.7 H Absolute Nucleated RBC 0.000 Nucleated RBC % (auto) 0.0 O2 Saturation ABG pH at Pt Temp ABG pH (Temp Correct) ABG pCO2 at Pt Temp ABG pCO2 (Temp Corrct ABG pO2 at Pt Temp ABG pO2 (Temp Correct ABG HCO3 ABG Base Excess (Actual) Anion Gap Estim Creat Clear Calc Estimated GFR Random Glucose Osmolality Lactic Acid Calcium Magnesium Total Bilirubin Direct Bilirubin AST ALT Alkaline Phosphatase Ammonia 23 Total Protein Albumin Lipase Beta HCG, Quant Urine Color Urine Appearance Urine pH Ur Specific [place] Urine Protein Urine Glucose (UA) Urine Ketones Urine Blood Urine Nitrite Ur Leukocyte Esterase Urine RBC Urine WBC Ur Squamous Epith Cells Urine Bacteria Urine Test Salicylates Urine Opiates Screen Urine Fentanyl Screen Acetaminophen Ur Barbiturates Screen Ur Phencyclidine Scrn Ur Amphetamines Screen U Benzodiazepines Scrn Urine Cocaine Screen U Marijuana (THC) Screen Ethyl Alcohol < 10 Coronavirus (PCR) Influenza Type A (PCR) Influenza Type B (PCR) RSV RNA Qual (PCR) 12/08/20 12/08/20 12/08/20 17:08 17:08 17:08 MCV MCH MCHC RDW Plt Count MPV Immature Gran % (Auto) Neut % (Auto) Lymph % (Auto) [place] % (Auto) Eos % (Auto) Baso % (Auto) Lymph # (Auto) [place] # (Auto) Eos # (Auto) Baso # (Auto) Abs Immat Gran (auto) Absolute Neuts (auto) Absolute Nucleated RBC Nucleated RBC % (auto) O2 Saturation ABG pH at Pt Temp ABG pH (Temp Correct) ABG pCO2 at Pt Temp ABG pCO2 (Temp Corrct ABG pO2 at Pt Temp ABG pO2 (Temp Correct ABG HCO3 ABG Base Excess (Actual) Anion Gap Estim Creat Clear Calc Estimated GFR Random Glucose Osmolality Lactic Acid Calcium Magnesium Total Bilirubin Direct Bilirubin AST ALT Alkaline Phosphatase Ammonia Total Protein Albumin Lipase Beta HCG, Quant Urine Color YELLOW Urine Appearance HAZY Urine pH 6.5 Ur Specific [place] >= 1.030 H Urine Protein 2+ H Urine Glucose (UA) NEG Urine Ketones >=80 Urine Blood 3+ H Urine Nitrite NEG Ur Leukocyte Esterase NEG Urine RBC 10-14 H Urine WBC 0-2 Ur Squamous Epith Cells 1+ Urine Bacteria TRACE Urine Test POSITIVE H Salicylates Urine Opiates Screen Not Detected Urine Fentanyl Screen Not Detected Acetaminophen Ur Barbiturates Screen Not Detected Ur Phencyclidine Scrn Not Detected Ur Amphetamines Screen Not Detected U Benzodiazepines Scrn Not Detected Urine Cocaine Screen POSITIVE H U Marijuana (THC) Screen POSITIVE H Ethyl Alcohol Coronavirus (PCR) Influenza Type A (PCR) Influenza Type B (PCR) RSV RNA Qual (PCR) 12/08/20 12/08/20 12/08/20 18:34 18:42 18:59 MCV MCH MCHC RDW Plt Count MPV Immature Gran % (Auto) Neut % (Auto) Lymph % (Auto) [place] % (Auto) Eos % (Auto) Baso % (Auto) Lymph # (Auto) [place] # (Auto) Eos # (Auto) Baso # (Auto) Abs Immat Gran (auto) Absolute Neuts (auto) Absolute Nucleated RBC Nucleated RBC % (auto) O2 Saturation 99.0 ABG pH at Pt Temp 7.50 H ABG pH (Temp Correct) 7.51 H ABG pCO2 at Pt Temp 25 L ABG pCO2 (Temp Corrct 25 L ABG pO2 at Pt Temp 147 H ABG pO2 (Temp Correct 143 H ABG HCO3 20 L ABG Base Excess (Actual) -0.7 Anion Gap 19 Estim Creat Clear Calc 90.7 Estimated GFR > 60 Random Glucose 204 H D Osmolality Lactic Acid Calcium 8.4 D Magnesium Total Bilirubin Direct Bilirubin AST ALT Alkaline Phosphatase Ammonia Total Protein Albumin Lipase Beta HCG, Quant Urine Color Urine Appearance Urine pH Ur Specific [place] Urine Protein Urine Glucose (UA) Urine Ketones Urine Blood Urine Nitrite Ur Leukocyte Esterase Urine RBC Urine WBC Ur Squamous Epith Cells Urine Bacteria Urine Test Salicylates Urine Opiates Screen Urine Fentanyl Screen Acetaminophen Ur Barbiturates Screen Ur Phencyclidine Scrn Ur Amphetamines Screen U Benzodiazepines Scrn Urine Cocaine Screen U Marijuana (THC) Screen Ethyl Alcohol Coronavirus (PCR) NEGATIVE Influenza Type A (PCR) NEGATIVE Influenza Type B (PCR) NEGATIVE RSV RNA Qual (PCR) NEGATIVE 12/08/20 12/08/20 12/08/20 18:59 20:00 21:07 MCV MCH MCHC RDW Plt Count MPV Immature Gran % (Auto) Neut % (Auto) Lymph % (Auto) [place] % (Auto) Eos % (Auto) Baso % (Auto) Lymph # (Auto) [place] # (Auto) Eos # (Auto) Baso # (Auto) Abs Immat Gran (auto) Absolute Neuts (auto) Absolute Nucleated RBC Nucleated RBC % (auto) O2 Saturation ABG pH at Pt Temp ABG pH (Temp Correct) ABG pCO2 at Pt Temp ABG pCO2 (Temp Corrct ABG pO2 at Pt Temp ABG pO2 (Temp Correct ABG HCO3 ABG Base Excess (Actual) Anion Gap Estim Creat Clear Calc Estimated GFR Random Glucose Osmolality 305 Lactic Acid Calcium Magnesium Total Bilirubin Direct Bilirubin AST ALT Alkaline Phosphatase Ammonia Total Protein Albumin Lipase Beta HCG, Quant Urine Color Urine Appearance Urine pH Ur Specific [place] Urine Protein Urine Glucose (UA) Urine Ketones Urine Blood Urine Nitrite Ur Leukocyte Esterase Urine RBC Urine WBC Ur Squamous Epith Cells Urine Bacteria Urine Test Salicylates 27.8 25.2 Urine Opiates Screen Urine Fentanyl Screen Acetaminophen Ur Barbiturates Screen Ur Phencyclidine Scrn Ur Amphetamines Screen U Benzodiazepines Scrn Urine Cocaine Screen U Marijuana (THC) Screen Ethyl Alcohol Coronavirus (PCR) Influenza Type A (PCR) Influenza Type B (PCR) RSV RNA Qual (PCR) 12/08/20 12/08/20 12/08/20 21:57 22:51 23:15 MCV MCH MCHC RDW Plt Count MPV Immature Gran % (Auto) Neut % (Auto) Lymph % (Auto) [place] % (Auto) Eos % (Auto) Baso % (Auto) Lymph # (Auto) [place] # (Auto) Eos # (Auto) Baso # (Auto) Abs Immat Gran (auto) Absolute Neuts (auto) Absolute Nucleated RBC Nucleated RBC % (auto) O2 Saturation ABG pH at Pt Temp ABG pH (Temp Correct) ABG pCO2 at Pt Temp ABG pCO2 (Temp Corrct ABG pO2 at Pt Temp ABG pO2 (Temp Correct ABG HCO3 ABG Base Excess (Actual) Anion Gap 16 Estim Creat Clear Calc 84.8 Estimated GFR > 60 Random Glucose 124 H D Osmolality Lactic Acid Calcium 8.3 L Magnesium Total Bilirubin Direct Bilirubin AST ALT Alkaline Phosphatase Ammonia Total Protein Albumin Lipase Beta HCG, Quant Urine Color Urine Appearance Urine pH Ur Specific [place] Urine Protein Urine Glucose (UA) Urine Ketones Urine Blood Urine Nitrite Ur Leukocyte Esterase Urine RBC Urine WBC Ur Squamous Epith Cells Urine Bacteria Urine Test Salicylates 24.6 22.3 Urine Opiates Screen Urine Fentanyl Screen Acetaminophen Ur Barbiturates Screen Ur Phencyclidine Scrn Ur Amphetamines Screen U Benzodiazepines Scrn Urine Cocaine Screen U Marijuana (THC) Screen Ethyl Alcohol Coronavirus (PCR) Influenza Type A (PCR) Influenza Type B (PCR) RSV RNA Qual (PCR) 12/09/20 12/09/20 08:15 08:15 MCV 94.8 MCH 33.2 H MCHC 35.0 RDW 13.7 Plt Count 177 MPV 9.7 Immature Gran % (Auto) Neut % (Auto) Lymph % (Auto) [place] % (Auto) Eos % (Auto) Baso % (Auto) Lymph # (Auto) [place] # (Auto) Eos # (Auto) Baso # (Auto) Abs Immat Gran (auto) Absolute Neuts (auto) Absolute Nucleated RBC 0.000 Nucleated RBC % (auto) 0.0 O2 Saturation ABG pH at Pt Temp ABG pH (Temp Correct) ABG pCO2 at Pt Temp ABG pCO2 (Temp Corrct ABG pO2 at Pt Temp ABG pO2 (Temp Correct ABG HCO3 ABG Base Excess (Actual) Anion Gap 11 L Estim Creat Clear Calc 89.7 Estimated GFR > 60 Random Glucose 109 Osmolality Lactic Acid Calcium 8.3 L Magnesium Total Bilirubin Direct Bilirubin AST ALT Alkaline Phosphatase Ammonia Total Protein Albumin Lipase Beta HCG, Quant Urine Color Urine Appearance Urine pH Ur Specific [place] Urine Protein Urine Glucose (UA) Urine Ketones Urine Blood Urine Nitrite Ur Leukocyte Esterase Urine RBC Urine WBC Ur Squamous Epith Cells Urine Bacteria Urine Test Salicylates Urine Opiates Screen Urine Fentanyl Screen Acetaminophen Ur Barbiturates Screen Ur Phencyclidine Scrn Ur Amphetamines Screen U Benzodiazepines Scrn Urine Cocaine Screen U Marijuana (THC) Screen Ethyl Alcohol Coronavirus (PCR) Influenza Type A (PCR) Influenza Type B (PCR) RSV RNA Qual (PCR) Quality Stroke Does the patient have a stroke diagnosis?: No VTE Prior VTE?: No VTE Risk Level:: Medical - low VTE Device Contraindication: Treatment Not Indicated VTE Drug Contraindication: Treatment Not Indicated
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
[2020-12-09] MEDS: 0.9 % Sodium Chloride 1,000 ML 100 ML IVCONT (19:56)
[2020-12-09] MEDS: Melatonin 3 MG TABLET 6 MG PO (21:56)
--- NOTE | 2020-12-09 22:00 | MHC.CARE ---
Pt was evaluated by [facility] B[facility]CH[facility] Liset Prather and will be an Inpatient bedsearch. CARE team will be involved with pt and pt will be admitted to tomorrow.
--- NOTE | 2020-12-10 | ECG_ITS ---
Test Reason : rhthm Blood Pressure : / mmHG Vent. Rate : 050 BPM Atrial Rate : 050 BPM P-R Int : 118 ms QRS Dur : 084 ms QT Int : 466 ms P-R-T Axes : 022 -06 018 degrees QTc Int : 424 ms Artifact in tracing Sinus bradycardia with sinus arrhythmia Otherwise normal ECG No significant changes when compared with the previous EKG of 08 dec 2020 Referred By: Connor Georges Electronically Signed By:RK CHAVARRIA
[2020-12-10 01:15] VITALS: BMI 26.4
[2020-12-10 03:42] VITALS: PULSE 53; RESP 16
[2020-12-10] MEDS: 0.9 % Sodium Chloride 1,000 ML 100 ML IVCONT (05:26)
[2020-12-10 06:00] VITALS: PULSE 51; RESP 18
[2020-12-10 08:00] VITALS: PULSE 65; RESP 16
[2020-12-10 09:08] LABS: Anion Gap 12 (12-20); Blood Urea Nitrogen 11 mg/dL (9-16); Calcium 8.8 mg/dL (8.4-10.2); Carbon Dioxide 20 mmol/L (22-29); Chloride 114 mmol/L (96-108); Creatinine Clr Calc Pharmacy 110.7; Estimated Glomerular Filt Rate > 60; Glucose Random 95 mg/dL (60-115); Potassium 3.9 mmol/L (3.3-5.1); Sodium 142 mmol/L (135-145)
--- NOTE | 2020-12-10 09:17 | PM.PNNEP ---
Subjective Subjective Date of Service: 12/10/20 Physical Exam Vital Signs: Vital Signs: Last Vital Signs Temp 98.6 F 12/09/20 23:13 Pulse 51 12/10/20 06:00 Resp 18 12/10/20 06:00 BP 114/70 12/09/20 23:13 Pulse Ox 100 12/09/20 23:13 Body Mass Index 26.4 Objective Data Labs CBC & Chem 7: 12/09/20 08:15 12/10/20 08:27 Labs: Laboratory Results - last 24 hr 12/10/20 08:27 Sodium 142 Potassium 3.9 Chloride 114 H Carbon Dioxide 20 L Anion Gap 12 BUN 11 Creatinine 0.78 Estim Creat Clear Calc 110.7 Estimated GFR > 60 Random Glucose 95 Calcium 8.8 D Procedures Date of Service Date of Service: 12/10/20 Assessment & Plan Assessment and plan (1) Suicide attempt: Status: Acute Assessment and Plan: resolved ASA OD will sign off ? Time Spent With Patient Time: Total time spent is greater than 50% in coordination of care (as documented) at patient's floor/unit and/or counseling patient: Progress Note: Quality Stroke Does the patient have a stroke diagnosis?: No
--- NOTE | 2020-12-10 09:51 | MHC.CM.PN ---
Addendum entered by Shelley Christie 12/10/20 15:23: PT WILL BE TRANSFERRED TO THIS EVENING. Original Note: CM MET WITH PT WHO REPORTS SHE LIVES ALONE AND IS INDEPENDENT WITH EVERYTHING. PT STATES SHE JUST NEEDS A MED PRESCRIBER FOR HER DEPRESSION. PT REPORTS SHE HAS AN OUTPATIENT THERAPIST BUT THEY HAVE NOT YET CONNECTED HER WITH A PSYCHIATRIST. PT IS AWARE SHE WILL BE GOING TO INPATIENT PSYCH ONCE A BED IS FOUND AND REPORTS THIS IS WHAT SHE WAS HOPING FOR. PT REPORTS HER ONLY CONCERN IS THAT SHE WOULD LIKE TO HAVE HER PHONE FOR GAMES. PT REPORTS SHE WAS TOLD SHE WOULD BE ABLE TO HAVE IT ONCE MOVED TO THE PSYCH FLOOR AND SAYS HER BROTHER WAS HERE IN THE PAST AND WAS ABLE TO FACE TIME HER FROM THAT UNIT. PT REPORTS IF SHE CAN HAVE IT ONCE MOVED, SHE FEELS SHE SHOULD BE ABLE TO HAVE IT NOW. CM EXPLAINED THIS IS THE PROCEDURE FOR ANYONE ADMITTING FOR THIS REASON. PT ALSO AWARE SHE IS MEDICALLY CLEAR SO READY TO TRANSFER ONCE A BED IS SECURED. PT WILL DISCHARGE TO INPATIENT PSYCH ONCE BED IS FOUND. TRANSPORTATION TBD BY PLACEMENT
[2020-12-10 11:53] VITALS: BP 135/67; RESP 20; TEMP 37.1; O2SAT 98
--- NOTE | 2020-12-10 15:10 | PM.DS ---
DS: Providers Provider Date of Service: 12/10/20 Date of admission: 12/08/20 17:49 Primary care physician: Rodríguez Bush MD Consults: 12/08/20 15:15 Consult to Crisis Stat Reason for consultation: si attempt 12/08/20 17:54 Consult to Nephrology Routine Consulting Provider: Haile Candelario Reason for consultation: ag metabolic acidosis Has provider been notified: No 12/08/20 18:18 Consult to Care Team Routine Comment: Reason for consultation: cocaine and marijuana use 12/09/20 16:25 Consult to Psychiatry Routine Consulting Provider: Adam Chatterjee Reason for consultation: depression Has provider been notified: No 12/09/20 23:16 Consult to Hospitalist Routine Consulting Provider: Hospitalist Reason For Exam: new admit physical DS: Diagnosis Discharge Diagnosis (1) Suicide attempt: Status: Acute DS: Medications Discharge Medications Home Medications: Home Medications Medication Instructions Recorded Confirmed No Known Home Meds 11/30/20 12/08/20 DS: Summary Hospital Course Hospital Course: CHIEF COMPLAINT:? Salicylate overdose. ? HISTORY OF PRESENTING ILLNESS:? 25-year-old female patient of Dr. Bush, who was seen at PCP office 1 week ago for a wellness check,andhad no acute issues, patient was brought into [facility] today by her friend due to intractable nausea and vomiting.? According to the patient, she took unknown quantity of aspirin, Naprosyn, and clindamycin as a suicide attempt roughly at 3 a.m.? After that, she went to sleep and she woke up with intractable nausea, vomiting.? Her friend saw her and brought her to the emergency room.? According to patient, she has been depressed and not doing well with prior history of suicide attempts in the past.? In the ER, workup revealed that she has an elevated salicylate level of 42.6.? Her urine tox was positive for cocaine and marijuana.? Her labs showed anion gap metabolic acidosis with normal renal function.? Mildly elevated AST and ALT. Her urinalysis is positive for 10 to 14 rbc, urine test is positive, although the ER physician was told by patient's friend that she had a medical done 4 weeks ago. ? PAST MEDICAL HISTORY:? Significant for asthma. Hospital course 25-year-old female patient, who presented to [facility] with intractable nausea, vomiting, after overdosing on salicylates, Naprosyn, and unknown amount of clindamycin with suicidal ideation. 1. Intentional drug overdose.?Patient ingested unknown amount of salicylate, clindamycin and Naprosyn, treated with IV bicarb drip, salicylate level normalized, renal function remained stable,anion gap closed, acidosis resolved, due to epigastric pain patient treated with Prilosec, and Maalox, at present patient has no abdominal complaints tolerating diet electrolytes and kidney function are normal, patient was evaluated by Crisis and now being discharged to acute psychiatric facility. ?? 2. Anion gap metabolic acidosis due to salicylate toxicity.? Resolved ? ? 3. History of substance use.? urine tox positive for cocaine and marijuana, treatment as per care team 4. History of alcohol dependence.? No withdrawal symptoms noted advised to abstain from alcohol. 5. Positive urine test.? Status post 4 weeks, normal serum hcg level. Time Spent with Patient Time attestation: Total time spent providing and/or coordinating discharge services: Discharge coordination time: Greater than 30 minutes Quality: Stroke Does the patient have a stroke diagnosis?: No Physical Exam Vital Signs: Vital Signs: Last Vital Signs Temp 98.7 F 12/10/20 11:53 Pulse 65 12/10/20 08:00 Resp 20 12/10/20 11:53 BP 135/67 12/10/20 11:53 Pulse Ox 98 12/10/20 11:53 Body Mass Index 26.4 General resting comfortably in no acute distress. Neck supple no JVD. CVS regular rate rhythm, Respiratory lungs clear to auscultation, no respiratory distress, no wheeze, no rhonchi. Gastrointestinal abdomen soft, nontender, bowel sounds audible, no guarding , no rigidity. Extremities edema. Neuro nonfocal , speech clear. Skin no rash DS: Data Data Completed and Pending Labs on day of discharge: Laboratory Results - last 24 hr 12/10/20 08:27 Sodium 142 Potassium 3.9 Chloride 114 H Carbon Dioxide 20 L Anion Gap 12 BUN 11 Creatinine 0.78 Estim Creat Clear Calc 110.7 Estimated GFR > 60 Random Glucose 95 Calcium 8.8 D Discharge Plan Discharge Disposition: Xfer Psychiatric Hosp Referrals: Rodríguez Bush MD [Primary Care Provider] - 1 Week Discharge Medications: No Action No Known Home Meds RF: 0 Discharge Orders: Discharge Order (Routine); Ordered 12/10/20 Ordered By: Alysa Owen Forms: Patient Portal Discharge page Plan of Treatment: Admitted to psychiatric facility
== END 2020-12-10 16:16 | DRG 918 ==
LOC: HO.ED 17:19 → HO.EDOVER 22:00 → HO.IMC 12-09 15:00
PROVIDERS: Internal Medicine; Admitting Provider Hospitalist; Emergency Provider Emergency Medicine; PCP Internal Medicine; Visit Provider Hospitalist
DX: T39.012A Poisoning by aspirin, intentional self-harm, initial encounter (principal); E87.2 Acidosis; R45.851 Suicidal ideations; T39.312A Poisoning by propionic acid derivatives, intentional self-harm, initial encounter; Z20.822 Contact with and (suspected) exposure to COVID-19; F10.20 Alcohol dependence, uncomplicated; T36.8X2A Poisoning by other systemic antibiotics, intentional self-harm, initial encounter; Y92.9 Unspecified place or not applicable; F17.210 Nicotine dependence, cigarettes, uncomplicated; Z71.6 Tobacco abuse counseling; Z88.0 Allergy status to penicillin; Z79.899 Other long term (current) drug therapy
CPT/HCPCS: 0241U; 36415; 80048; 80076; 80143; 80179; 80307; 81001; 81025; 82077; 82140; 82803; 83605; 83690; 83735; 83930; 84702; 85025; 85027; 85610; 93005; 99285

== ENCOUNTER 2020-12-10 16:20 | Inpatient (IN) | payer OTHER, SELFPAY ==
[2020-12-10 18:00] VITALS: BP 118/61; PULSE 55; TEMP 36.6
--- NOTE | 2020-12-10 21:04 | PC.ADMIT ---
Pt admitted to from [facility] pt was in 443. Pt came to at 1620. Pt signed a CV and 3-day notice. Pt was medically admitted secondary to reporting she took approximately 20 aspirins, unknown amount of naproxen, unknown amount of clindamycin,in a suicide attempt. She reports grieving an she had approximately one month ago. She has history of previous suicide attempts and has no prescribed medications due to lack of provider. Pt met with psych provider Liset Betancur and upon inquiry pt states she is not goood . Precipitating factors include that she had a medical a month ago at [facility], says Idon't regret it but also I don't know how to cope . Says her sleep is poor, I keep waking up, has nightmares. Appeitit is low, says she has been isoating and staying in bed prior to hospitalization. Endorses sx of anxiety. And increased depression. Sadie states she does not feel safe to leave the hospital, says she thinks the same thing will happen of wanting to hurt myself . Pt states she will be safe here. Pt denies SI/HI. Pt is cooperative. Pt lives by herself in an apartment in [place]. Pt is on probation. Pt uses Marijuana and drinks alcohol but reports this is not a problem for me . Pt has been incarcerated last year.
[2020-12-10] MEDS: Melatonin 3 MG TABLET 6 MG PO (22:40)
[2020-12-11] MEDS: Omeprazole 20 MG CAPSULE.DR PO (09:14)
--- NOTE | 2020-12-11 09:44 | HO.PSYADMNOT ---
HPI Chief Complaint: overdose Sources of Information: patient interviewed and chart reviewed HPI Subjective Notes: [place] Warning and Conditional Voluntary Narrative: Sadie is a 25-year-old, young woman who was transferred from the medical unit up to M 5. She was admitted from the emergency room to a medical unit because of an overdose on aspirin and Naprosyn. She cannot tell me how much she took. She states that she has been feeling depressed on and off but more so in the past 3-4 weeks around some family related issues and some other stressors which she did not want to talk about specifically. She denied having plan the overdose and it was an impulsive act. She fell asleep and woke up feeling nauseous and after contacting a friend she was brought to the emergency room by the friend where she was treated and admitted medically. She has not been on any psychotropic medications lately but in the past she had spleen on lithium, Seroquel, trazodone. In the past she also has been on Prozac. She did not find any of them helpful but is interested in trying something new. She does have history of intermittent alcohol, marijuana and cocaine use and her U tox was positive for cocaine. She has had 3 previous suicide attempts by cutting and overdosing. The last episode prior to the recent 1 was about a year ago. Social history: Both of her parents are . Her mother from cancer when she was 3 and her father when she was 13 from alcohol-related complications. She then went into [facility] care. She has 4 siblings, 3 surviving and she has little to no contact with them. She did finish high school and has had 1 year of college. 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 She lives alone and is on SSDI Diagnosis: [place] I major depression. Polysubstance abuse [place] II none [place] III asthma, knee injury Past Psychiatric History: Inpatient and outpatient treatments Medical Evaluation Reviewed: Yes [facility] Medical History (Updated 12/11/20 @ 10:06 by Tasneem Godwin MD) Asthma Screening for diabetes mellitus Screening for hyperlipidemia Screening for hypothyroidism Surgical History No pertinent past surgical history Diagnostics Vital Signs (24Hr): Vital Signs - 24 hr 12/10/20 18:00 Temperature 97.9 F Pulse Rate 55 Blood Pressure 118/61 Meds/Allergies Meds Home Medications Acetaminophen (Acetaminophen 325 Mg Tablet) 650 mg PO Q6H PRN PRN Reason: Headache/Pain Mild Scale (1-3) Al Hydroxide/Mg Hydroxide (Magnesium Hydrox/Alum Hydrox 30 Ml Oral.Susp) 30 ml PO Q6H PRN PRN Reason: Heartburn/Nausea Hydroxyzine HCl (Hydroxyzine Hcl 25 Mg Tablet) 25 mg PO Q6H PRN PRN Reason: Anxiety Magnesium Hydroxide (Milk Of Magnesia 30 Ml Oral.Susp) 30 ml PO DAILY PRN PRN Reason: Constipation Melatonin (Melatonin 3 Mg Tablet) 6 mg PO BEDTIME [facility] Last Admin: 12/10/20 22:40 Dose: 6 mg Documented by: Omeprazole (Omeprazole 20 Mg Capsule.Dr) 20 mg PO DAILY@0630 [facility] Last Admin: 12/11/20 09:14 Dose: 20 mg Documented by: Polyethylene Glycol (Polyethylene Glycol 3350 17 Gm Powd.Pack) 17 gm PO DAILY PRN PRN Reason: Constipation Trazodone HCl (Trazodone Hcl 50 Mg Tablet) 50 mg PO BEDTIME PRN PRN Reason: Insomnia Allergies Allergies Allergy/AdvReac Type Severity Reaction Status Date / Time penicillin V Allergy Unknown hives Verified 11/30/20 10:15 Penicillins [PENICILLINS] Allergy Unknown HIVES Verified 11/30/20 10:15 Mental Status Exam Mental Status Exam Narrative: Sadie was seen the morning after her transfer to this unit. She is alert, oriented and pleasant. Normal speech. Good eye contact. Affect is appropriate and contained. Moderate anxiety and dysphoria present. She denies any current suicidal ideations. No signs of psychosis. Cognitively intact. Judgment is intact Assessment & Plan Assessment & Plan (1) Major depression: Status: Acute Code(s): F32.9 - Major depressive disorder, single episode, unspecified Assessment and Plan: Patient was admitted to the unit for safety and stabilization and meets criteria for inpatient level of care. We discussed some medication options and decided upon a trial of Lexapro 5 mg daily. Side effects and risks benefits discussed. Outpatient referral to be made prior to discharge Assessment and Plan: As above Patient educated on: diagnosis, medication risk/benefits, substance abuse, ECT, TMS, therapeutic strategies, medical condition and other Reason for continued inpatient stay Substantial Risk for: harm to self
[2020-12-11] MEDS: Escitalopram Oxalate 5 MG TABLET PO (11:28)
[2020-12-11 12:15] VITALS: BP 116/74; PULSE 99; RESP 16; TEMP 36.1; O2SAT 99
[2020-12-11 18:00] VITALS: BP 121/70; PULSE 52; TEMP 36.5
[2020-12-11] MEDS: Melatonin 3 MG TABLET 6 MG PO (22:23)
[2020-12-12 00:12] VITALS: BMI 26.4
[2020-12-12] MEDS: Melatonin 3 MG TABLET PO (00:31)
[2020-12-12] MEDS: Omeprazole 20 MG CAPSULE.DR PO (08:58)
[2020-12-12] MEDS: hydrOXYzine HCL 25 MG TABLET PO (08:58)
[2020-12-12 09:00] VITALS: BP 113/66; PULSE 90; RESP 16; TEMP 36.2; O2SAT 98
--- NOTE | 2020-12-12 09:43 | HO.PSYCHPN ---
Subjective Subjective Date of Service: 12/12/20 Reason For Visit: overdose Subjective Notes: Conditional Voluntary Interim History: patient was seen in rounds today. She has been doing better but continues to have some nausea since her overdose. She has been tolerating the Lexapro which I will increase to 10 mg. She has been eating and sleeping adequately. No SI. No other complaints. No other changes were made today Mental Status Exam Mental Status Exam Narrative: in today's visit she is alert, oriented and pleasant. Normal speech. Good eye contact. Affect is appropriate and contained. No acute signs of depression. No SI upon inquiry. Cognitively intact. Judgment is intact Diagnostics Vital Signs (24Hr): Vital Signs - 24 hr 12/11/20 12:15 12/11/20 18:00 Temperature 97.0 F 97.7 F Pulse Rate 99 52 Respiratory Rate 16 Blood Pressure 116/74 121/70 Pulse Oximetry 99 Body Mass Index 26.4 Medications Medications Current Medications Generic Name Dose Route Start Last Admin Trade Name Freq PRN Reason Stop Dose Admin Acetaminophen 650 mg 12/10/20 16:45 Acetaminophen 325 Mg Tablet PO Q6H PRN Headache/Pain Mild Scale (1-3) Al Hydroxide/Mg Hydroxide 30 ml 12/10/20 16:45 Magnesium Hydrox/Alum Hydrox 30 Ml Oral.Susp PO Q6H PRN Heartburn/Nausea Hydroxyzine HCl 25 mg 12/10/20 16:45 12/12/20 08:58 Hydroxyzine Hcl 25 Mg Tablet PO 25 mg Q6H PRN Administration Anxiety Magnesium Hydroxide 30 ml 12/10/20 16:45 Milk Of Magnesia 30 Ml Oral.Susp PO DAILY PRN Constipation Melatonin 6 mg 12/10/20 21:00 12/11/20 22:23 Melatonin 3 Mg Tablet PO 6 mg BEDTIME FELICITAS Administration Omeprazole 20 mg 12/11/20 06:30 12/12/20 08:58 Omeprazole 20 Mg Capsule. PO 20 mg DAILY@0630 FELICITAS Administration Polyethylene Glycol 17 gm 12/10/20 16:45 Polyethylene Glycol 3350 17 Gm Powd.Pack PO DAILY PRN Constipation Trazodone HCl 50 mg 12/10/20 16:45 Trazodone Hcl 50 Mg Tablet PO BEDTIME PRN Insomnia Allergies Allergies Allergy/AdvReac Type Severity Reaction Status Date / Time penicillin V Allergy Unknown hives Verified 11/30/20 10:15 Penicillins [PENICILLINS] Allergy Unknown HIVES Verified 11/30/20 10:15 Assessment & Plan Assessment & Plan (1) Major depression: Status: Acute Code(s): F32.9 - Major depressive disorder, single episode, unspecified Assessment and Plan: Patient was informed of the increase of Lexapro to 10 mg Greater than 50% of the session was spent on counseling and/or coordination of care Reason for contiued inpatient stay Substantial Risk for: harm to self
[2020-12-12] MEDS: Escitalopram Oxalate 10 MG TABLET PO (11:22)
[2020-12-12 18:00] VITALS: BP 129/71; PULSE 55; TEMP 36.9
[2020-12-12] MEDS: Melatonin 3 MG TABLET 6 MG PO (21:56)
[2020-12-13] MEDS: Omeprazole 20 MG CAPSULE.DR PO (08:47)
[2020-12-13] MEDS: Escitalopram Oxalate 10 MG TABLET PO (08:47)
[2020-12-13 16:45] VITALS: BP 110/67; PULSE 52; RESP 16; TEMP 36.5; O2SAT 99
--- NOTE | 2020-12-13 18:47 | HO.PSYCHPN ---
Subjective Subjective Date of Service: 12/13/20 Reason For Visit: overdose Subjective Notes: 3 Day (12/15/20) Healthcare Proxy: No Guardianship: No Medical Problems Affecting Mental Status: No Interim History: Pt is pleased with initiation of Lexapro. Three day notice in until 12/15/20. Reflected today upon precipitants which brought her into the hospital. Denies SI currently. Medication Compliance: Yes Side effects from medications: No Attending Groups: Yes Review of Systems Acute medical concerns: No Medical Review of Systems: unchanged Review of Systems Psychiatric: Reports depression and Reports suicidal ideation (denies) Mental Status Exam Mental Status Exam Patient Appearance: Appropriate Patient Orientation: Person, Place, Time and Situation Level of Consciousness: Alert Patient Behavior: Talkative and Good Eye Contact Mood Description: Calm Affect Description: Calm Patient Cognition Impaired: No Ability to Follow Directions: Good Speech Pattern: Spontaneous Speech Memory Description: Intact Hallucinations: None Delusions: Not Present Thought Process: Intact Thought Content: positive for Intact Depressive Symptoms: Increased Anxiety and Increased Irritability Judgement: Good Diagnostics Vital Signs (24Hr): Vital Signs - 24 hr 12/13/20 16:45 Temperature 97.7 F Pulse Rate 52 Respiratory Rate 16 Blood Pressure 110/67 Pulse Oximetry 99 Body Mass Index 26.4 Medications Medications Current Medications Generic Name Dose Route Start Last Admin Trade Name Freq PRN Reason Stop Dose Admin Acetaminophen 650 mg 12/10/20 16:45 Acetaminophen 325 Mg Tablet PO Q6H PRN Headache/Pain Mild Scale (1-3) Al Hydroxide/Mg Hydroxide 30 ml 12/10/20 16:45 Magnesium Hydrox/Alum Hydrox 30 Ml Oral.Susp PO Q6H PRN Heartburn/Nausea Escitalopram Oxalate 10 mg 12/12/20 09:45 12/13/20 08:47 Escitalopram Oxalate 10 Mg Tablet PO 10 mg DAILY FELICITAS Administration Hydroxyzine HCl 25 mg 12/10/20 16:45 12/12/20 08:58 Hydroxyzine Hcl 25 Mg Tablet PO 25 mg Q6H PRN Administration Anxiety Magnesium Hydroxide 30 ml 12/10/20 16:45 Milk Of Magnesia 30 Ml Oral.Susp PO DAILY PRN Constipation Melatonin 6 mg 12/10/20 21:00 12/12/20 21:56 Melatonin 3 Mg Tablet PO 6 mg BEDTIME FELICITAS Administration Omeprazole 20 mg 12/11/20 06:30 12/13/20 08:47 Omeprazole 20 Mg Capsule.Dr PO 20 mg DAILY@0630 FELICITAS Administration Polyethylene Glycol 17 gm 12/10/20 16:45 Polyethylene Glycol 3350 17 Gm Powd.Pack PO DAILY PRN Constipation Trazodone HCl 50 mg 12/10/20 16:45 Trazodone Hcl 50 Mg Tablet PO BEDTIME PRN Insomnia Allergies Allergies Allergy/AdvReac Type Severity Reaction Status Date / Time penicillin V Allergy Unknown hives Verified 11/30/20 10:15 Penicillins [PENICILLINS] Allergy Unknown HIVES Verified 11/30/20 10:15 Assessment & Plan Assessment & Plan (1) Major depression: Status: Acute Code(s): F32.9 - Major depressive disorder, single episode, unspecified Assessment and Plan: Continue Lexapro 10 mg daily. Greater than 50% of the session was spent on counseling and/or coordination of care Patient educated on: medication risk/benefits and therapeutic strategies Informed Consent: understands and further education needed Reason for contiued inpatient stay Substantial Risk for: harm to self and rapid decompensation
[2020-12-13] MEDS: Melatonin 3 MG TABLET 6 MG PO (22:01)
[2020-12-14] MEDS: Omeprazole 20 MG CAPSULE.DR PO (09:10)
[2020-12-14 11:36] LABS: Thyroid Stimulating Hormone 3.02 uIU/mL (0.32-4.0)
--- NOTE | 2020-12-14 12:56 | P.PNPSI_ITS ---
Subjective Subjective Date of Service: 12/14/20 Reason For Visit: overdose Subjective Notes: Conditional Voluntary and 3 Day (12/15/20) Healthcare Proxy: No Guardianship: No Medical Problems Affecting Mental Status: No Interim History: Pt discussed feeling improved with Lexapro however with racing thoughts. Discussed with pt teams noting her with an increase in lability of her mood-she concurs. Discussed decreasing Lexapro and adding a mood stabilizer. She would like to keep the Lexapro at 10 mg but is very willing to begin mood stabilization. Hx of use of Lamictal and Wendover which she has no interest in trialing again. Discussed Depakote-she has no plans for future pregnancies and would like to trial. Continues to plan to leave on 12/15, however, will stay connected by phone until she meets with her out patient team. Medication Compliance: Yes Side effects from medications: Yes (racing thoughts) Attending Groups: Yes Review of Systems Acute medical concerns: No Medical Review of Systems: unchanged Review of Systems Reports behavioral changes Psychiatric: Reports behavioral changes, Reports irritability, Reports mood swings and Reports suicidal ideation (denies) Mental Status Exam Mental Status Exam Patient Appearance: Appropriate Patient Orientation: Person, Place, Time and Situation Level of Consciousness: Alert Patient Behavior: Talkative, Belligerent, Swearing, Distractible and Good Eye Contact Mood Description: Constricted and Labile Affect Description: Constricted and Labile Patient Cognition Impaired: No Ability to Follow Directions: Good Speech Pattern: Spontaneous Speech Memory Description: Intact Hallucinations: None Delusions: Not Present Thought Process: Racing (reports some racing at times) Thought Content: positive for Racing (reports some racing at times) and positive for Suicidal Ideation (denies) Judgement: Fair Diagnostics Vital Signs (24Hr): Vital Signs - 24 hr 12/13/20 16:45 Temperature 97.7 F Pulse Rate 52 Respiratory Rate 16 Blood Pressure 110/67 Pulse Oximetry 99 Body Mass Index 26.4 Labs Labs: Laboratory Results - last 48 hr 12/14/20 10:29 TSH 3.02 EKG EKG: reviewed EKG Comment: WNL Medications Medications Current Medications Generic Name Dose Route Start Last Admin Trade Name Freq PRN Reason Stop Dose Admin Acetaminophen 650 mg 12/10/20 16:45 Acetaminophen 325 Mg Tablet PO Q6H PRN Headache/Pain Mild Scale (1-3) Al Hydroxide/Mg Hydroxide 30 ml 12/10/20 16:45 Magnesium Hydrox/Alum Hydrox 30 Ml Oral.Susp PO Q6H PRN Heartburn/Nausea Divalproex Sodium 250 mg 12/14/20 11:30 Divalproex Sodium 250 Mg Tablet. PO BID FELICITAS Escitalopram Oxalate 10 mg 12/14/20 21:00 Escitalopram Oxalate 10 Mg Tablet PO BEDTIME FELICITAS Hydroxyzine HCl 25 mg 12/10/20 16:45 12/12/20 08:58 Hydroxyzine Hcl 25 Mg Tablet PO 25 mg Q6H PRN Administration Anxiety Magnesium Hydroxide 30 ml 12/10/20 16:45 Milk Of Magnesia 30 Ml Oral.Susp PO DAILY PRN Constipation Melatonin 6 mg 12/10/20 21:00 12/13/20 22:01 Melatonin 3 Mg Tablet PO 6 mg BEDTIME FELICITAS Administration Omeprazole 20 mg 12/11/20 06:30 12/14/20 09:10 Omeprazole 20 Mg Capsule. PO 20 mg DAILY@0630 FELICITAS Administration Polyethylene Glycol 17 gm 12/10/20 16:45 Polyethylene Glycol 3350 17 Gm Powd.Pack PO DAILY PRN Constipation Trazodone HCl 50 mg 12/10/20 16:45 Trazodone Hcl 50 Mg Tablet PO BEDTIME PRN Insomnia Allergies Allergies Allergy/AdvReac Type Severity Reaction Status Date / Time penicillin V Allergy Unknown hives Verified 11/30/20 10:15 Penicillins [PENICILLINS] Allergy Unknown HIVES Verified 11/30/20 10:15 Assessment & Plan Assessment & Plan (1) Major depression: Status: Acute Code(s): F32.9 - Major depressive disorder, single episode, unspecified Assessment and Plan: Continue Lexapro 10 mg daily. Pt reporting some racing thoughts. Discussed possible bipolar disorder, bipolar II. By history she has used Wendover and Lamictal and would like a trial of a new mood stabilizer. She agrees to a Depakote trial 250 mg bid Greater than 50% of the session was spent on counseling and/or coordination of care Patient educated on: diagnosis, medication risk/benefits and therapeutic strategies Informed Consent: understands Reason for contiued inpatient stay Substantial Risk for: inability to function and rapid decompensation
[2020-12-14] MEDS: Divalproex Sodium 250 MG TABLET.DR PO ×2 (13:11→21:08)
[2020-12-14 13:38] LABS: Folate 13.6 ng/mL (> or = 4.0); Vitamin B12 358 pg/mL (200-900)
[2020-12-14 18:10] VITALS: BP 118/76; PULSE 80; TEMP 36.5
[2020-12-14] MEDS: Melatonin 3 MG TABLET 6 MG PO (22:35)
[2020-12-15 06:37] VITALS: BP 107/58; PULSE 73; RESP 16; O2SAT 100
[2020-12-15] MEDS: Divalproex Sodium 250 MG TABLET.DR PO (09:04)
[2020-12-15] MEDS: Omeprazole 20 MG CAPSULE.DR PO (09:04)
--- NOTE | 2020-12-15 12:28 | PM.PSYDC ---
DS: Providers Provider Date of Service: 12/15/20 Date of admission: 12/10/20 16:20 Date of discharge: 12/15/20 Primary care physician: Rodríguez Bush MD Admitting clinician: Tasneem Godwin Attending physician on admission: Tasneem Godwin Consults: 12/10/20 16:45 Consult to Hospitalist Routine Consulting Provider: Hospitalist Reason For Exam: new admit physical Attending physician on discharge: Juan C Wallace Discharging clinician: Laine Newby DS: Diagnosis Discharge Diagnosis (1) Major depression: Status: Acute DS: Medications Discharge Medications Home Medications: Home Medications Medication Instructions Recorded Confirmed No Known Home Meds 11/30/20 12/08/20 Previous Rx's Medication Instructions Recorded divalproex 250 mg tablet,delayed 250 mg PO BID #14 tab 12/15/20 release escitalopram oxalate 10 mg tablet 10 mg PO BEDTIME #14 tab 12/15/20 melatonin 3 mg tablet 6 mg PO BEDTIME #30 tab 12/15/20 omeprazole 20 mg capsule,delayed 20 mg PO DAILY@0630 #30 cap 12/15/20 release Mental Status Exam Mental Status Exam Patient Appearance: Appropriate Patient Orientation: Person, Place, Time and Situation Level of Consciousness: Alert Patient Behavior: Talkative, Distractible and Good Eye Contact Mood Description: Constricted Affect Description: Constricted Patient Cognition Impaired: No Ability to Follow Directions: Good Speech Pattern: Spontaneous Speech Memory Description: Intact Hallucinations: None Delusions: Not Present Thought Process: Intact Thought Content: positive for Intact and positive for Suicidal Ideation (denies) Judgement: Good Data Data Completed and Pending Completed studies during hospitalization [Text1]: 12/14/20 12/14/20 10:29 10:29 Vitamin B12 358 Folate 13.6 TSH 3.02 DS: Summary Hospital Course Hospital Course: Sadie is a 25 yo female, transferred from the medical unit, after an overdose of aspirin and naprosyn. She reports this was unplanned and impulsive. She reported family issues as a stressor [employer]APPING. Reported a history of medication trials, including Prozac, Trazodone, Seroquel, [place] which she had stopped and were not too helpful. She expressed interest in a new trial and Lexapro was initiated. Pt reported that she felt this was beginning to take effect, however with some racing of thoughts. Low dose Depakote was initiated with improvement. Pt was active in milieu, however, submitted a three day notice of intent to discharge. She was agreeable to follow up out patient treatment and will call or return as needed. Time spent discussing smoking cessation with patient: 3 to 10 minutes Status at Discharge Cognitive/behavioral status at discharge: alert, non-psychotic, mood is euthymic, non-suicidal Functional status at discharge: independent ambulation Overall status at discharge: patient is progressing back to baseline Time Spent with Patient Time attestation: Total time spent providing and/or coordinating discharge services:35 Time spent: Greater than 30 minutes Discharge Plan Discharge Anticipated Discharge Date/Time: 12/15/20 14:00 Patient Disposition: Home, Self-Care Discharge Diagnosis: Bipolar Depression Referrals: Therapist: Jorge Mckeon) [Other] - 12/23/20 10:15 am () Psychiatry: [facility] [Other] - 1 Week (You have been referred to [facility] and should follow-up with your therapist about obtaining an appointment. ) Rodríguez Bush MD [Physician] - 1 Week (OFFICE IS AWARE OF PT. DISCHARGE WILL CALL BACK OR CALL PT. WITH FOLLOW-UP APPOINTMENT,) Discharge Medications: New divalproex 250 mg Tablet,Delayed Release (Dr/Ec) 250 mg PO BID Qty: 14 RF: 4 melatonin 3 mg Tablet 6 mg PO BEDTIME Qty: 30 RF: 0 omeprazole 20 mg Capsule,Delayed Release(Dr/Ec) 20 mg PO DAILY@0630 Qty: 30 RF: 0 escitalopram oxalate 10 mg Tablet 10 mg PO BEDTIME Qty: 14 RF: 1 No Action No Known Home Meds RF: 0 Discharge Orders: Discharge Order (Routine); Ordered 12/15/20 Ordered By: Laine Newby Diet: advance to usual diet Activity on Discharge: As tolerated Stand Alone Forms: Patient Portal Discharge page Care Plan Goals: Mood Stabilization Health Concerns: Depression R/O Bipolar Disorder Plan of Treatment: Continue medications as directed Call/ Return as needed Attend scheduled appointments Assessment: Sadie, you are leaving as you have signed a three day notice which expires today. Dr. Godwin met with you and initiated Lexapro 10 mg daily. You have reported efficacy with Lexapro, however, also reported some racing thoughts. We initiated Depakote 250 mg twice daily on 12/14/20 and you will need to have this increased with your out patient providers and you will need to have follow up lab work to get a Depakote level and to monitor your complete blood count and comprehensive metabolic panel. Depakote is a mood stabilizer. We have discussed that if you want to become , you will need to stop Depakote and that it may interfere with control efficacy. Please call if you have any questions or concerns. You have denied suicidal ideation or intent, have no symptoms of psychosis. Patient Instructions: Escitalopram (By mouth), Valproic Acid (By mouth) Discharge Date/Time: 12/15/20 11:00
== END 2020-12-15 11:00 | disposition home or self-care (01) | DRG 881 ==
PROVIDERS: Admitting Provider Psychiatry & Neurology Psychiatry; Visit Provider Clinical Nurse Specialist Psychiatric/Mental Health, Adult
DX: F32.9 Major depressive disorder, single episode, unspecified (principal); F17.210 Nicotine dependence, cigarettes, uncomplicated; Z71.6 Tobacco abuse counseling; Z91.5 Personal history of self-harm; Z88.0 Allergy status to penicillin; Z79.899 Other long term (current) drug therapy
CPT/HCPCS: 36415; 82607; 82746; 84443

== ENCOUNTER 2021-05-24 18:54 | Inpatient (IN) | payer OTHER, SELFPAY ==
[2021-05-24 19:08] VITALS: BP 127/84; PULSE 80; RESP 16; TEMP 37.3; O2SAT 97; BMI 25.0
--- NOTE | 2021-05-24 19:10 | ED_ITS ---
HPI - Psych General Chief Complaint: Psychiatric Symptoms Stated Complaint: crisis Source: patient and EMS Mode of arrival: EMS Limitations: no limitations History of Present Illness HPI Narrative: 26-year-old female presents via EMS for suicidal ideation, medication noncompliance and relationship complications. MD complaint: suicidal ideation, feels depressed, anxiety and alcohol abuse Onset (ago): unknown Duration: constant History of same: Yes Relieving factors: none Exacerbating factors: alcohol Context: recent alcohol abuse, not taking psychiatric medications and significant life stressor Associated psychiatric symptoms: depression, suicidal ideation and racing thoughts Associated symptoms: insomnia Treatments prior to arrival: placed on mental health hold If self harm: admits thoughts of self harm Related Data Home Medications Medication Instructions Recorded Confirmed escitalopram oxalate 5 mg tablet 1 tab PO DAILY 05/24/21 05/24/21 Previous Rx's Medication Instructions Recorded divalproex 250 mg tablet,delayed 250 mg PO BID #14 tab 12/15/20 release Allergies Allergy/AdvReac Type Severity Reaction Status Date / Time penicillin V Allergy Unknown hives Verified 11/30/20 10:15 Penicillins [PENICILLINS] Allergy Unknown HIVES Verified 11/30/20 10:15 Review of Systems Verdana 4l Review of Systems: Verdana 4d Verdana 4d Constitutional: No Fever, No Chills ENT/Mouth: No Ear Pain, No Nasal Congestion, No sore throat Eyes: No Eye Pain, No Swelling, No Redness Cardiovascular: No Chest Pain, No SOB Respiratory: No Cough, No Sputum, No Dyspnea GastrointestinalGastrointestinal: No Nausea, No Vomiting, No Diarrhea, No Hematochezia, No Melena Genitourinary: No Dysuria, No Urinary Frequency, No Hematuria Musculoskeletal: No Myalgias Skin: No Skin Lesions, No rash Neuro: No Weakness, No Numbness, No Paresthesias, No Dizziness, No Headache Psych: positive Anxiety, positive Depression, positive SI, positive alcohol abuse Heme/Lymph: No Lymphadenopathy Endocrine: No Polyuria, No Polydipsia Yes all other systems are reviewed and are negative [facility] Past Medical History Attestation statement: The following information was validated with the patient. Source: old records reviewed Medical History Asthma Screening for diabetes mellitus Screening for hyperlipidemia Screening for hypothyroidism Surgical History No pertinent past surgical history Family History Family History Father Liver failure H/O ETOH abuse Drug addiction Mother Cancer Drug addiction Brother Drug overdose Social History Social History Household Members: None Housing: Apartment Do you presently have visiting nurse or other home services: No Alcohol intake: current Alcohol intake frequency: 0-2 drinks per day Patient Tobacco Use Status: Current everyday Tobacco user Tobacco use type: Cigarette Cigarettes Per Day: 2 Second Hand Smoke Exposure: No Substance Use Type: Marijuana Advance Directives: No Advance Directives Information Provided: Yes Guardian: No Patient : No service: No Current occupational status: unemployed Sexual orientation: Lesbian/Pierce/Homosexual Physical Exam Verdana 4l Vital Signs: Verdana 4d Verdana 4d Vital Signs: Verdana 4d Verdana 4Bd Last Vital Signs Verdana 4d Transit Manager New 4d Transit Manager New 4d Temp 99.2 F 05/24/21 19:08 Transit Manager New 4d Pulse 80 05/24/21 19:08 Transit Manager NewNew 4d Resp 18 05/24/21 22:10 BP 127/84 05/24/21 19:08 Pulse Ox 97 05/24/21 19:08 BMI result Body Mass Index 25.0 Appearance: Alert. Oriented X3. Moderate psychiatric distress. Eyes: Pupils equal, round and reactive to light. Sclera nonicteric. EOMI. No nystagmus. ENT: Pharynx normal. Moist mucous membranes. Neck: Normal inspection. Neck supple. CVS: Normal heart rate and rhythm. Pulses normal. Respiratory: No respiratory distress. Breath sounds normal. Abdomen: Soft and nontender. Skin: Skin warm and dry. Normal skin color. Normal skin turgor. Extremities: No lower extremity edema. Gait well-balanced well coordinated Neuro: No motor deficit. No sensory deficit. Cranial nerves 2 intact Course Course Course Narrative: 26-year-old female presents via EMS for suicidal ideation, alcohol abuse, medication noncompliance and relationship problems. Patient is not interested in speaking with this provider during initial assessment. Patient is disorganized, yelling, swearing at staff. Calling staff member stupid. Patient is a Section 12 from the community. Patient also reports that she feels that she may have a sexually transmitted infection from her girlfri end. Will order CT and she urinalysis as well as treat with azithromycin and ceftriaxone. 8:30 p.m. patient verbally disruptive, screaming, stating that she wants to call her girlfriend. Swearing at staff. Stated that she has been asking for hours for medications. Patient given p.o. Ativan and Haldol. 9:00 p.m. care team updated this CREEL HAND that patient was uncontrollable. I did assess this patient as soon as care team approached me, patient has continued to scream, swear, slapping herself in the face. That she has been hours for people to turn off the alarm that was not in the locker that belonged to her. Bedside, order for 5 Haldol and 2 Ativan IM. Patient continues swearing and speaking disrespectfully to all staff members. 10:00 p.m., patient is sleeping. Even unlabored respirations. Repositioning self as needed. 11:00 p.m. patient continues to sleep. Even unlabored respirations. Repositioning herself as needed. 12:39 a.m. physician observation. Plan is for admission to . MDM - Psych Differential Diagnosis Differential diagnosis: Likely acute psychosis, suicidal ideation, bipolar disorder, depression, drug-induced psychotic disorder, acute anxiety, alcohol intoxication and mood disorder Medical Records Attestation: I reviewed the patient's medical records. Lab Data Attestation: I reviewed the patient's lab results. Result diagrams: 05/24/21 19:46 05/24/21 19:46 Labs: Lab Results 05/24/21 05/24/21 05/24/21 Range/Units 19:46 19:46 19:46 WBC 8.6 (4.8-10.8) X10*3/uL RBC 4.62 (4.20-5.50) X10*6/uL Hgb 14.6 (12.0-16.0) g/dl Hct 42.8 (37.0-47.0) % MCV 92.6 (80.0-98.0) fL MCH 31.6 (27.0-33.0) pg MCHC 34.1 (31.0-35.0) g/dl RDW 14.0 (11.0-16.0) % Plt Count 186 (160-400) X10*3/uL MPV 10.1 (9.4-12.3) fL Immature Gran % (Auto) 0.7 H (0.0-0.4) % Neut % (Auto) 60.1 (45-73) % Lymph % (Auto) 31.2 (20-40) % [place] % (Auto) 7.3 (2-11) % Eos % (Auto) 0.5 (0-4) % Baso % (Auto) 0.2 (0-2) % Lymph # (Auto) 2.7 (1.2-4.9) X10*3/uL [place] # (Auto) 0.6 (0.1-1.2) X10*3/uL Eos # (Auto) 0.0 (0.0-0.4) X10*3/uL Baso # (Auto) 0.0 (0.0-0.2) X10*3/uL Abs Immat Gran (auto) 0.06 H (0.00-0.03) X10*3/uL Absolute Neuts (auto) 5.1 (2.0-8.3) x10*3/uL Absolute Nucleated RBC 0.000 (0.0-0.012) X10*3/uL Nucleated RBC % (auto) 0.0 (0.0-0.2) /100WBC Sodium 143 (135-145) mmol/L Potassium 4.1 (3.3-5.1) mmol/L Chloride 108 (96-108) mmol/L Carbon Dioxide 24 (22-29) mmol/L Anion Gap 15 (12-20) BUN 11 (9-16) mg/dL Creatinine 0.77 (0.5-1.4) mg/dL Estim Creat Clear Calc 100.5 Estimated GFR > 60 Random Glucose 74 (60-115) mg/dL Calcium 10.0 D (8.4-10.2) mg/dL Total Bilirubin (0.0-1.0) mg/dL Direct Bilirubin (0.0-0.5) mg/dL AST (5-31) U/L ALT (0-31) U/L Alkaline Phosphatase (39-117) U/L Total Protein (6.5-8.0) g/dL Albumin (3.5-5.0) g/dL Lipase (8-78) U/L Urine Color Urine Appearance Urine pH (5.0-8.0) Ur Specific [place] (1.005-1.025) Urine Protein (NEG-TRACE) MG/DL Urine Glucose (UA) (NEG) MG/DL Urine Ketones (NEG) MG/DL Urine Blood (NEG) Urine Nitrite (NEG) Ur Leukocyte Esterase (NEG) Urine Test (NEGATIVE) Urine Opiates Screen (Not Detect) Urine Fentanyl Screen (Not Detect) Ur Barbiturates Screen (Not Detect) Valproic Acid (50.0-100.0) mcg/mL Ur Phencyclidine Scrn (Not Detect) Ur Amphetamines Screen (Not Detect) U Benzodiazepines Scrn (Not Detect) Urine Cocaine Screen (Not Detect) U Marijuana (THC) Screen (Not Detect) Ethyl Alcohol 170 mg/dL COVID-19 ([facility]) (Negative) COVID-19 Clin Com 05/24/21 05/24/21 05/24/21 Range/Units 19:46 19:46 19:47 WBC (4.8-10.8) X10*3/uL RBC (4.20-5.50) X10*6/uL Hgb (12.0-16.0) g/dl Hct (37.0-47.0) % MCV (80.0-98.0) fL MCH (27.0-33.0) pg MCHC (31.0-35.0) g/dl RDW (11.0-16.0) % Plt Count (160-400) X10*3/uL MPV (9.4-12.3) fL Immature Gran % (Auto) (0.0-0.4) % Neut % (Auto) (45-73) % Lymph % (Auto) (20-40) % [place] % (Auto) (2-11) % Eos % (Auto) (0-4) % Baso % (Auto) (0-2) % Lymph # (Auto) (1.2-4.9) X10*3/uL [place] # (Auto) (0.1-1.2) X10*3/uL Eos # (Auto) (0.0-0.4) X10*3/uL Baso # (Auto) (0.0-0.2) X10*3/uL Abs Immat Gran (auto) (0.00-0.03) X10*3/uL Absolute Neuts (auto) (2.0-8.3) x10*3/uL Absolute Nucleated RBC (0.0-0.012) X10*3/uL Nucleated RBC % (auto) (0.0-0.2) /100WBC Sodium (135-145) mmol/L Potassium (3.3-5.1) mmol/L Chloride (96-108) mmol/L Carbon Dioxide (22-29) mmol/L Anion Gap (12-20) BUN (9-16) mg/dL Creatinine (0.5-1.4) mg/dL Estim Creat Clear Calc Estimated GFR Random Glucose (60-115) mg/dL Calcium (8.4-10.2) mg/dL Total Bilirubin 0.5 (0.0-1.0) mg/dL Direct Bilirubin 0.3 (0.0-0.5) mg/dL AST 25 D (5-31) U/L ALT 29 (0-31) U/L Alkaline Phosphatase 97 (39-117) U/L Total Protein 7.5 (6.5-8.0) g/dL Albumin 4.6 (3.5-5.0) g/dL Lipase 28 (8-78) U/L Urine Color Urine Appearance Urine pH (5.0-8.0) Ur Specific [place] (1.005-1.025) Urine Protein (NEG-TRACE) MG/DL Urine Glucose (UA) (NEG) MG/DL Urine Ketones (NEG) MG/DL Urine Blood (NEG) Urine Nitrite (NEG) Ur Leukocyte Esterase (NEG) Urine Test (NEGATIVE) Urine Opiates Screen (Not Detect) Urine Fentanyl Screen (Not Detect) Ur Barbiturates Screen (Not Detect) Valproic Acid < 2.0 L (50.0-100.0) mcg/mL Ur Phencyclidine Scrn (Not Detect) Ur Amphetamines Screen (Not Detect) U Benzodiazepines Scrn (Not Detect) Urine Cocaine Screen (Not Detect) U Marijuana (THC) (Not Detect) Screen Ethyl Alcohol mg/dL COVID-19 ([facility]) Positive A (Negative) COVID-19 Clin Com See Note 05/24/21 05/24/21 05/24/21 Range/Units 19:47 19:47 19:47 WBC (4.8-10.8) X10*3/uL RBC (4.20-5.50) X10*6/uL Hgb (12.0-16.0) g/dl Hct (37.0-47.0) % MCV (80.0-98.0) fL MCH (27.0-33.0) pg MCHC (31.0-35.0) g/dl RDW (11.0-16.0) % Plt Count (160-400) X10*3/uL MPV (9.4-12.3) fL Immature Gran % (0.0-0.4) % (Auto) Neut % (Auto) (45-73) % Lymph % (Auto) (20-40) % [place] % (Auto) (2-11) % Eos % (Auto) (0-4) % Baso % (Auto) (0-2) % Lymph # (Auto) (1.2-4.9) X10*3/uL [place] # (Auto) (0.1-1.2) X10*3/uL Eos # (Auto) (0.0-0.4) X10*3/uL Baso # (Auto) (0.0-0.2) X10*3/uL Abs Immat Gran (auto) (0.00-0.03) X10*3/uL Absolute Neuts (auto) (2.0-8.3) x10*3/uL Absolute Nucleated (0.0-0.012) RBC X10*3/uL Nucleated RBC % (0.0-0.2) /100WBC (auto) Sodium (135-145) mmol/L Potassium (3.3-5.1) mmol/L Chloride (96-108) mmol/L Carbon Dioxide (22-29) mmol/L Anion Gap (12-20) BUN (9-16) mg/dL Creatinine (0.5-1.4) mg/dL Estim Creat Clear Calc Estimated GFR Random Glucose (60-115) mg/dL Calcium (8.4-10.2) mg/dL Total Bilirubin (0.0-1.0) mg/dL Direct Bilirubin (0.0-0.5) mg/dL AST (5-31) U/L ALT (0-31) U/L Alkaline Phosphatase (39-117) U/L Total Protein (6.5-8.0) g/dL Albumin (3.5-5.0) g/dL Lipase (8-78) U/L Urine Color YELLOW Urine Appearance CLEAR Urine pH 6.0 (5.0-8.0) Ur Specific [place] <= 1.005 (1.005-1.025) Urine Protein NEG (NEG-TRACE) MG/DL Urine Glucose (UA) NEG (NEG) MG/DL Urine Ketones NEG (NEG) MG/DL Urine Blood NEG (NEG) Urine Nitrite NEG (NEG) Ur Leukocyte Esterase NEG (NEG) Urine Test NEGATIVE (NEGATIVE) Urine Opiates Screen Not Detected (Not Detect) Urine Fentanyl Screen Not Detected (Not Detect) Ur Barbiturates Not Detected (Not Detect) Screen Valproic Acid (50.0-100.0) mcg/mL Ur Phencyclidine Scrn Not Detected (Not Detect) Ur Amphetamines Not Detected (Not Detect) Screen U Benzodiazepines Not Detected (Not Detect) Scrn Urine Cocaine Screen Not Detected (Not Detect) U Marijuana (THC) Not Detected (Not Detect) Screen Ethyl Alcohol mg/dL COVID-19 ([facility]) (Negative) COVID-19 Clin Com Discharge Plan Discharge Clinical Impression: Acute psychosis, Suicidal ideation Major depression Qualifiers: Major depression recurrence: recurrent Active/Remission status: currently active Major depression episode severity: severe Psychotic features: with psychotic features Qualified Code(s): F33.3 - Major depressive disorder, recurrent, severe with psychotic symptoms Alcohol intoxication Qualifiers: Complication of substance-induced condition: uncomplicated Qualified Code(s): F10.920 - Alcohol use, unspecified with intoxication, uncomplicated Patient Disposition: Still a Patient Prescriptions: No Action divalproex 250 mg Tablet,Delayed Release (Dr/Ec) 250 mg PO BID Qty: 14 RF: 4 escitalopram oxalate 5 mg tablet 1 tab PO DAILY RF: 0
[2021-05-24 19:57] LABS: MANUAL DIFF FLAG NO
[2021-05-24] MEDS: cefTRIAXone sodium 500 MG, Lidocaine HCl 1 % MPF 1 ML IM (20:00)
[2021-05-24 20:01] LABS: Basophils Percent Auto 0.2 % (0-2); Eosinophils Percent Auto 0.5 % (0-4); Hematocrit 42.8 % (37.0-47.0); Hemoglobin 14.6 g/dl (12.0-16.0); Imm Gran Abs Auto 0.06 X10*3/uL (0.00-0.03); Imm Gran Pct Auto 0.7 % (0.0-0.4); Lymphocytes Absolute Auto 2.7 X10*3/uL (1.2-4.9); Lymphocytes Percent Auto 31.2 % (20-40); Mean Corpuscular HGB Conc 34.1 g/dl (31.0-35.0); Mean Corpuscular Hemoglobin 31.6 pg (27.0-33.0); Mean Corpuscular Volume 92.6 fL (80.0-98.0); Mean Platelet Volume 10.1 fL (9.4-12.3); Monocytes Absolute Auto 0.6 X10*3/uL (0.1-1.2); Monocytes Percent Auto 7.3 % (2-11); Neutrophils Absolute Auto 5.1 x10*3/uL (2.0-8.3); Neutrophils Percent Auto 60.1 % (45-73); Platelet Count 186 X10*3/uL (160-400); Red Blood Count 4.62 X10*6/uL (4.20-5.50); White Blood Count 8.6 X10*3/uL (4.8-10.8)
[2021-05-24] MEDS: Azithromycin 500 MG TABLET 1000 MG PO (20:01)
[2021-05-24 20:11] LABS: COVID-19 Test Positive (Negative); IDNOW Serial# 9DD0AD1C
[2021-05-24 20:12] LABS: Ethanol 170 mg/dL
[2021-05-24 20:14] LABS: Anion Gap 15 (12-20); Blood Urea Nitrogen 11 mg/dL (9-16); Carbon Dioxide 24 mmol/L (22-29); Chloride 108 mmol/L (96-108); Creatinine Clr Calc Pharmacy 100.5; Estimated Glomerular Filt Rate > 60; Glucose Random 74 mg/dL (60-115); Potassium 4.1 mmol/L (3.3-5.1); Sodium 143 mmol/L (135-145)
[2021-05-24 20:16] LABS: Alanine Aminotransferase 29 U/L (0-31); Albumin Level 4.6 g/dL (3.5-5.0); Alkaline Phosphatase 97 U/L (39-117); Aspartate Amino Transferase 25 U/L (5-31); Bilirubin Direct 0.3 mg/dL (0.0-0.5); Bilirubin Total 0.5 mg/dL (0.0-1.0); Lipase 28 U/L (8-78); Total Protein 7.5 g/dL (6.5-8.0)
[2021-05-24 20:26] LABS: Valproate < 2.0 mcg/mL (50.0-100.0)
[2021-05-24 20:26] LABS: Appearance Urine CLEAR; Color Urine YELLOW; Glucose Urine UA NEG (NEG); Leukocyte Esterase Urine NEG (NEG); Nitrite Urine NEG (NEG); Specific Gravity - Urine <= 1.005 (1.005-1.025); Urine Blood NEG (NEG); Urine Ketones NEG (NEG); Urine Protein NEG (NEG-TRACE)
[2021-05-24 20:38] LABS: UPreg QC Valid YES; Urine Pregnancy NEGATIVE (NEGATIVE)
[2021-05-24 20:40] LABS: Amphetamine Screen Urine Not Detected (Not Detect); Barbiturates, Urine Not Detected (Not Detect); Benzodiazepines Screen Urine Not Detected (Not Detect); Cannabinoid Screen Urine Not Detected (Not Detect); Cocaine Screen Urine Not Detected (Not Detect); Fentanyl, urine Not Detected (Not Detect); Opiate Screen Urine Not Detected (Not Detect); Phencyclidine Screen Urine Not Detected (Not Detect)
[2021-05-24] MEDS: HaloperidoL 5 MG TABLET PO (20:40)
[2021-05-24] MEDS: LORazepam 1 MG TABLET PO (20:40)
[2021-05-24 21:10] VITALS: RESP 20
[2021-05-24] MEDS: Haloperidol Lactate 5 MG/ML VIAL IM (21:10)
[2021-05-24] MEDS: LORazepam 2 MG/ML VIAL IM (21:10)
[2021-05-24 21:25] VITALS: RESP 18
[2021-05-24 21:40] VITALS: RESP 18
[2021-05-24 21:55] VITALS: RESP 18
[2021-05-24 22:10] VITALS: RESP 18
--- NOTE | 2021-05-25 | ECG_ITS ---
Test Reason : med clearance Blood Pressure : / mmHG Vent. Rate : 072 BPM Atrial Rate : 072 BPM P-R Int : 118 ms QRS Dur : 090 ms QT Int : 420 ms P-R-T Axes : 064 071 027 degrees QTc Int : 459 ms Normal sinus rhythm with sinus arrhythmia Normal ECG When compared with ECG of 10-DEC-2020 03:29, Questionable change in QRS axis T wave amplitude has decreased in Anterior leads Referred By: Romulo Deshpande Electronically Signed By:MANDO MARINO MD
--- NOTE | 2021-05-25 01:02 | MHC.CARE ---
CARE team was contacted by pt via phone, asking if there were any open beds on the inpt psychiatric unit, endorsing suicidal ideation for the past week and with active plan to overdose with her medications. She admitted to alcohol use and was not alone in her apartment at the time of the call, as she was actively speaking with her cousin during the phone call. [place] [employer] was contacted to request a wellness check and a Section 12a was completed and signed by Sabina CABRERA and a copy was faxed to [employer]. This production underwriter remained on the phone with pt until [employer] officers arrived to the apartment. Pt was transported to the ED without issue. This production underwriter completed the remainder of the assessment face to face and pt is an active inpt psychiatric bedsearch. She reported that she tested positive for covid on 05/12/21 and was symptomatic for 4 days, and denied having had an symptoms in the past week. She has tested positive for covid while in the ED and will require administrative approval for admission and transfer to an inpt unit.
--- NOTE | 2021-05-25 06:05 | PC.NURSE ---
Patient slept through the night, no distress observed/reported, patient was chemically restraint at 2109 for her loud disruptive, agitated, labile, combative , threatening gesture, and non [id number] behavior. Patient was administered with Ativan 2 mg IM and Haldol 5 mg IM at 2109 with + effect, per care team patient's disposition is section 12 inpatient bed search, VSS, will continue to monitor.
[2021-05-25 06:44] VITALS: BP 107/73; PULSE 68; RESP 16; TEMP 37.2; O2SAT 99
--- NOTE | 2021-05-25 07:07 | PC.NURSE ---
patient appears to remain asleep at present respirations are even and unlabored, patient appears in no distress
[2021-05-25 16:57] LABS: COVID-19 Test Negative (Negative); IDNOW Serial# 55D5AD1C
[2021-05-25 19:28] VITALS: BP 111/69; PULSE 97; RESP 17; TEMP 36.6; O2SAT 95
[2021-05-25] MEDS: Melatonin 3 MG TABLET 6 MG PO (23:07)
[2021-05-25] MEDS: Divalproex Sodium 250 MG TABLET.DR PO (23:07)
--- NOTE | 2021-05-26 05:12 | PC.ADMIT ---
Pt is a 26 year old female admitted to the unit after referral from the CARE team at [facility]. Arrived on unit at 1924, legal status CV. Medical issues: asthma. Substance use: pt reports increase in alcohol use since her birthday, which was . She reports drinking approx. 2 Twisted Teas and 1/2 pint of liquor, occasionally then going to the store to buy more alcohol; last drink was prior to coming to the ED on 05/24. Legal: Pt believes she has court 06/17 to get off probation , did not elaborate on reason for being on probation. Precipitant: Pt initially contacted CARE team by phone prior to coming into the ED. Pt reports an increase in depression and anxiety over the past 2 weeks, precipitating factors include ongoing relationship issues with her partner and the of her grandfather two days before her birthday. Pt had also been experiencing SI, when asked during admission if there was a plan, she replied nothing that I acted on ; per crisis assessment pt made comments about overdosing on her medicationsShe denies hallucinations or perceptual disturbances. She does report inability to sleep at night and decreased appetite due to depression. Pt reports having outpatient providers through [facility], and states that she was supposed to have an appointment with her therapist . Pt reportedly tested positive for COVID 05/12 and reports having had symptoms for 4 days. Upon arrival to the ED pt's BAL was 170, CEBALLOS negative. Pt reported that she had not been taking her medications due to her alcohol use. Depakote level <2.0. Pt was previously on M5 2020 after being medically admitted s/p overdose on naprosyn and aspirin. At the time of admission assessment pt was alert and oriented, cooperative throughout admission process. Presented with a depressed affect. Denied current SI, stated I'm just really sad . No apparent signs of psychosis. Nurse to nurse completed prior to admission. MD notified and orders obtained. Pt verbally contracted for unit safety, on 15 minute safety checks.
[2021-05-26 08:49] VITALS: BP 127/77; PULSE 80; TEMP 36.3; O2SAT 94
[2021-05-26] MEDS: Divalproex Sodium 250 MG TABLET.DR PO (09:11)
[2021-05-26 09:15] LABS: Estimated Average Glucose 82 mg/dL; Hemoglobin A1c % 4.5 %
[2021-05-26 09:23] LABS: Cholesterol 131 mg/dL; HDL Cholesterol 45 mg/dL; LDL Cholesterol Calculated 65 mg/dl; Triglycerides 105 mg/dL
[2021-05-26 09:44] LABS: Thyroid Stimulating Hormone 2.02 uIU/mL (0.32-4.0)
[2021-05-26 10:31] LABS: Folate 8.5 ng/mL (> or = 4.0); Vitamin B12 413 pg/mL (200-900)
--- NOTE | 2021-05-26 12:19 | P.HPPS_ITS ---
HPI Date of Service: 05/26/21 Chief Complaint: Agitation Sources of Information: patient interviewed, chart reviewed and crisis/core team assessment reviewed HPI Subjective Notes: Mays Warning, Conditional Voluntary and 3 Day Narrative: Ms. Russo is a 26 year-old female who initially called care team reporting SI with plan to OD. She was transported via EMS on section 12 to [facility]. Pt reported precipitating factors recent of her grandfather 2 days before her birthday and problems with current partner. In the ED, BAL 170. Utox was negative, but there is hx of positive cocaine in past. On the unit, Ms. Russo presents as irritable. She expresses her frustration over receiving a higher dose of depakote 250mg po BID. She reports she only take 250mg po qhs, even though this dose is subtherapeutic. She describes mood as pissed. She reports she was saddened by passing of her grandfather few days after her birthday. She does acknowledge problems with partner but would not elaborate. She adamantly denies suicidal ideation or plan or intent to hurt herself. Pt irritable and minimally cooperative at times when gathering infor mation related to alcohol use, since she reports has significantly increase. She reports she does not know. She denies symptoms of alcohol withdrawal She denies hx of VH/AH. She reports appetite is okay. She has been mostly in her room. She signed 3 day notice. She reports medications are not the problem. She wants to continue current medications. Past Psychiatric History: Inpatient: OP: [facility] Suicide attempt: OD in November 2020 (medically admitted, then transfer to ). Medical Evaluation Reviewed: Yes [facility] Medical History Asthma Screening for diabetes mellitus Screening for hyperlipidemia Screening for hypothyroidism Surgical History No pertinent past surgical history Family History: unknown Social History: both parents when pt was child. She was in DCF custody. She has 4 siblings little contact with them. Substance History: Pt very irritable when trying to gather more accurate hx of substance use. She reports sporadic use of cocaine and alcohol. She denies hx of alcohol withdrawal symptoms. She does not think substances is a problem Trauma History: foster care placement Diagnostics Vital Signs (24Hr): Vital Signs - 24 hr 05/25/21 19:28 05/26/21 08:49 Temperature 97.8 F 97.3 F Pulse Rate 97 80 Respiratory Rate 17 Blood Pressure 111/69 127/77 Pulse Oximetry 95 94 BMI result Verdana 4 Body Mass Index Verdana 4 25.0 Verdana 4 Verdana 4 Labs Results: 05/24/21 19:46 05/24/21 19:46 Labs: Laboratory Results - last 48 hr 05/24/21 05/24/21 05/24/21 19:46 19:46 19:46 WBC 8.6 RBC 4.62 Hgb 14.6 Hct 42.8 MCV 92.6 MCH 31.6 MCHC 34.1 RDW 14.0 Plt Count 186 MPV 10.1 Immature Gran % (Auto) 0.7 H Neut % (Auto) 60.1 Lymph % (Auto) 31.2 [place] % (Auto) 7.3 Eos % (Auto) 0.5 Baso % (Auto) 0.2 Lymph # (Auto) 2.7 [place] # (Auto) 0.6 Eos # (Auto) 0.0 Baso # (Auto) 0.0 Abs Immat Gran (auto) 0.06 H Absolute Neuts (auto) 5.1 Absolute Nucleated RBC 0.000 Nucleated RBC % (auto) 0.0 Sodium 143 Potassium 4.1 Chloride 108 Carbon Dioxide 24 Anion Gap 15 BUN 11 Creatinine 0.77 Estim Creat Clear Calc 100.5 Estimated GFR > 60 Random Glucose 74 Estimat Average Glucose Hemoglobin A1c % Calcium 10.0 D Total Bilirubin Direct Bilirubin AST ALT Alkaline Phosphatase Total Protein Albumin Triglycerides Cholesterol LDL Cholesterol, Calc HDL Cholesterol Lipase Vitamin B12 Folate TSH Urine Color Urine Appearance Urine pH Ur Specific [place] Urine Protein Urine Glucose (UA) Urine Ketones Urine Blood Urine Nitrite Ur Leukocyte Esterase Urine Test Urine Opiates Screen Urine Fentanyl Screen Ur Barbiturates Screen Valproic Acid Ur Phencyclidine Scrn Ur Amphetamines Screen U Benzodiazepines Scrn Urine Cocaine Screen U Marijuana (THC) Screen Ethyl Alcohol 170 COVID-19 (ROSALBA) COVID-19 Clin Com 05/24/21 05/24/21 05/24/21 19:46 19:46 19:47 WBC RBC Hgb Hct MCV MCH MCHC RDW Plt Count MPV Immature Gran % (Auto) Neut % (Auto) Lymph % (Auto) [place] % (Auto) Eos % (Auto) Baso % (Auto) Lymph # (Auto) [place] # (Auto) Eos # (Auto) Baso # (Auto) Abs Immat Gran (auto) Absolute Neuts (auto) Absolute Nucleated RBC Nucleated RBC % (auto) Sodium Potassium Chloride Carbon Dioxide Anion Gap BUN Creatinine Estim Creat Clear Calc Estimated GFR Random Glucose Estimat Average Glucose Hemoglobin A1c % Calcium Total Bilirubin 0.5 Direct Bilirubin 0.3 AST 25 D ALT 29 Alkaline Phosphatase 97 Total Protein 7.5 Albumin 4.6 Triglycerides Cholesterol LDL Cholesterol, Calc HDL Cholesterol Lipase 28 Vitamin B12 Folate TSH Urine Color Urine Appearance Urine pH Ur Specific [place] Urine Protein Urine Glucose (UA) Urine Ketones Urine Blood Urine Nitrite Ur Leukocyte Esterase Urine Test Urine Opiates Screen Urine Fentanyl Screen Ur Barbiturates Screen Valproic Acid < 2.0 L Ur Phencyclidine Scrn Ur Amphetamines Screen U Benzodiazepines Scrn Urine Cocaine Screen U Marijuana (THC) Screen Ethyl Alcohol COVID-19 (ROSALBA) Positive A COVID-19 [employer] See Note 05/24/21 05/24/21 05/24/21 19:47 19:47 19:47 WBC RBC Hgb Hct MCV MCH MCHC RDW Plt Count MPV Immature Gran % (Auto) Neut % (Auto) Lymph % (Auto) [place] % (Auto) Eos % (Auto) Baso % (Auto) Lymph # (Auto) [place] # (Auto) Eos # (Auto) Baso # (Auto) Abs Immat Gran (auto) Absolute Neuts (auto) Absolute Nucleated RBC Nucleated RBC % (auto) Sodium Potassium Chloride Carbon Dioxide Anion Gap BUN Creatinine Estim Creat Clear Calc Estimated GFR Random Glucose Estimat Average Glucose Hemoglobin A1c % Calcium Total Bilirubin Direct Bilirubin AST ALT Alkaline Phosphatase Total Protein Albumin Triglycerides Cholesterol LDL Cholesterol, Calc HDL Cholesterol Lipase Vitamin B12 Folate TSH Urine Color YELLOW Urine Appearance CLEAR Urine pH 6.0 Ur Specific Meredith <= 1.005 Urine Protein NEG Urine Glucose (UA) NEG Urine Ketones NEG Urine Blood NEG Urine Nitrite NEG Ur Leukocyte Esterase NEG Urine Test NEGATIVE Urine Opiates Screen Not Detected Urine Fentanyl Screen Not Detected Ur Barbiturates Screen Not Detected Valproic Acid Ur Phencyclidine Scrn Not Detected Ur Amphetamines Screen Not Detected U Benzodiazepines Scrn Not Detected Urine Cocaine Screen Not Detected U Marijuana (THC) Screen Not Detected Ethyl Alcohol COVID-19 (ROSALBA) COVID-19 [employer] 05/25/21 05/26/21 05/26/21 16:32 08:59 08:59 WBC RBC Hgb Hct MCV MCH MCHC RDW Plt Count MPV Immature Gran % (Auto) Neut % (Auto) Lymph % (Auto) [place] % (Auto) Eos % (Auto) Baso % (Auto) Lymph # (Auto) [place] # (Auto) Eos # (Auto) Baso # (Auto) Abs Immat Gran (auto) Absolute Neuts (auto) Absolute Nucleated RBC Nucleated RBC % (auto) Sodium Potassium Chloride Carbon Dioxide Anion Gap BUN Creatinine Estim Creat Clear Calc Estimated GFR Random Glucose Estimat Average Glucose 82 Hemoglobin A1c % 4.5 Calcium Total Bilirubin Direct Bilirubin AST ALT Alkaline Phosphatase Total Protein Albumin Triglycerides 105 Cholesterol 131 LDL Cholesterol, Calc 65 HDL Cholesterol 45 Lipase Vitamin B12 Folate TSH 2.02 Urine Color Urine Appearance Urine pH Ur Specific [place] Urine Protein Urine Glucose (UA) Urine Ketones Urine Blood Urine Nitrite Ur Leukocyte Esterase Urine Test Urine Opiates Screen Urine Fentanyl Screen Ur Barbiturates Screen Valproic Acid Ur Phencyclidine Scrn Ur Amphetamines Screen U Benzodiazepines Scrn Urine Cocaine Screen U Marijuana (THC) Screen Ethyl Alcohol COVID-19 (ROSALBA) Negative [employer] See Note 05/26/21 08:59 WBC RBC Hgb Hct MCV MCH MCHC RDW Plt Count MPV Immature Gran % (Auto) Neut % (Auto) Lymph % (Auto) Murray % (Auto) Eos % (Auto) Baso % (Auto) Lymph # (Auto) Murray # (Auto) Eos # (Auto) Baso # (Auto) Abs Immat Gran (auto) Absolute Neuts (auto) Absolute Nucleated RBC Nucleated RBC % (auto) Sodium Potassium Chloride Carbon Dioxide Anion Gap BUN Creatinine Estim Creat Clear Calc Estimated GFR Random Glucose Estimat Average Glucose Hemoglobin A1c % Calcium Total Bilirubin Direct Bilirubin AST ALT Alkaline Phosphatase Total Protein Albumin Triglycerides Cholesterol LDL Cholesterol, Calc HDL Cholesterol Lipase Vitamin B12 413 Folate 8.5 TSH Urine Color Urine Appearance Urine pH Ur Specific [place] Urine Protein Urine Glucose (UA) Urine Ketones Urine Blood Urine Nitrite Ur Leukocyte Esterase Urine Test Urine Opiates Screen Urine Fentanyl Screen Ur Barbiturates Screen Valproic Acid Ur Phencyclidine Scrn Ur Amphetamines Screen U Benzodiazepines Scrn Urine Cocaine Screen U Marijuana (THC) Screen Ethyl Alcohol COVID-19 (ROSALBA) COVID-19 Clin Com Meds/Allergies Meds Home Medications Acetaminophen (Acetaminophen 325 Mg Tablet) 650 mg PO Q6H PRN PRN Reason: Headache/Pain Mild Scale (1-3) Al Hydroxide/Mg Hydroxide (Magnesium Hydrox/Alum Hydrox 30 Ml Oral.Susp) 30 ml PO Q6H PRN PRN Reason: Heartburn/Nausea Divalproex Sodium (Divalproex Sodium 250 Mg Tablet.Dr) 250 mg PO BEDTIME FELICITAS Hydroxyzine HCl (Hydroxyzine Hcl 25 Mg Tablet) 25 mg PO Q6H PRN PRN Reason: Anxiety Magnesium Hydroxide (Milk Of Magnesia 30 Ml Oral.Susp) 30 ml PO DAILY PRN PRN Reason: Constipation Melatonin (Melatonin 3 Mg Tablet) 6 mg PO BEDTIME FELICITAS Last Admin: 05/25/21 23:07 Dose: 6 mg Documented by: Nicotine Polacrilex (Nicotine Polacrilex 2 Mg Gum) 2 mg BUCCAL Q2H PRN PRN Reason: Nicotine Cravings Trazodone HCl (Trazodone Hcl 50 Mg Tablet) 50 mg PO BEDTIME PRN PRN Reason: Insomnia Allergies Allergies Allergy/AdvReac Type Severity Reaction Status Date / Time penicillin V Allergy Unknown hives Verified 11/30/20 10:15 Penicillins [PENICILLINS] Allergy Unknown HIVES Verified 11/30/20 10:15 Mental Status Exam Mental Status Exam Narrative: Appearance: thin, casually groomed, fair hygiene in NAD Behavior:irritable, minimally cooperative at times psychomotor: no agitation or retardation noted Speech:clear, normal rate/rhythm/volume, spontaneous Thought process: linear Thought content:no signs of psychosis, complaining about receiving extra dose of depakote Mood: pissed Affect: congruent, irritable SI:denies HI:denies VH/AH:denies Delusions:none Insight/judgment: poor x 2. Memory/cog: alert, oriented x 3. grossly intact to conversational testing. Assessment & Plan Assessment & Plan (1) Bipolar II disorder major depressive with atypical features: Status: Acute Code(s): F31.81 - Bipolar II disorder Plan Ms. Russo is a 26 year-old woman with hx of Bipolar type 2 disorder brought via EMS after she called care team reporting suicidal ideation in context of recently losing her granfather and problems with partner. BAL in ED 170. Utox negative, although pt with hx of sporadic use of cocaine. VS stable, SBP< 150, DBP<90, no signs of alcohol withdrawal. Last drink 2 days ago. Pt presents as labile, impulsive, irritable. Pt currently denies suicidal or homicidal ideation. We discussed risks, benefits and alternative treatment options. Pt declines to take therapeutic dose of depakote. PLAN 1. Admit to M3, 3 day, 15 minutes checks 2. continue depakote 250mg po qhs 3. obtain collateral information 4. aftercare planning. Reason for continued inpatient stay Substantial Risk for: inability to function
[2021-05-26 21:43] VITALS: BP 105/66; PULSE 66; TEMP 36.6; O2SAT 99
[2021-05-26] MEDS: Melatonin 3 MG TABLET 6 MG PO (21:55)
[2021-05-27 05:55] VITALS: BMI 24.7
[2021-05-27] MEDS: Acetaminophen 325 MG TABLET 650 MG PO (10:24)
[2021-05-27 12:51] LABS: Influenza A PCR NEGATIVE (Negative); Influenza B PCR NEGATIVE (Negative); Resp Syncy Virus RNA Qual PCR NEGATIVE (Negative); SARS COV2 PCR INHOUSE NEGATIVE (Negative)
--- NOTE | 2021-05-27 16:10 | PM.PSYDC ---
DS: Providers Provider Date of Service: 05/27/21 Date of admission: 05/25/21 17:38 Primary care physician: Unknown Physician DS: Diagnosis Discharge Diagnosis (1) Bipolar II disorder major depressive with atypical features: Status: Acute DS: Medications Discharge Medications Home Medications: Previous Rx's Medication Instructions Recorded divalproex 250 mg tablet,delayed 250 mg PO BEDTIME #30 tab 05/27/21 release melatonin 3 mg tablet 6 mg PO BEDTIME #60 tab 05/27/21 naltrexone 50 mg tablet 50 mg PO DAILY #30 tab 05/27/21 Mental Status Exam Mental Status Exam Narrative: Appearance: thin, casually groomed, fair hygiene in NAD Behavior:irritable, minimally cooperative at times psychomotor: no agitation or retardation noted Speech:clear, normal rate/rhythm/volume, spontaneous Thought process: linear Thought content:no signs of psychosis, future oriented looking forward to return home with partner and continue OP psych tx. Mood: better Affect: congruent, less irritable SI:denies HI:denies VH/AH:denies Delusions:none Insight/judgment: poor x 2. Memory/cog: alert, oriented x 3. grossly intact to conversational testing. Data Data Completed and Pending Completed studies during hospitalization [Text1]: 05/24/21 05/24/21 05/24/21 19:46 19:46 19:46 WBC 8.6 RBC 4.62 Hgb 14.6 Hct 42.8 MCV 92.6 MCH 31.6 MCHC 34.1 RDW 14.0 Plt Count 186 MPV 10.1 Immature Gran % (Auto) 0.7 H Neut % (Auto) 60.1 Lymph % (Auto) 31.2 [place] % (Auto) 7.3 Eos % (Auto) 0.5 Baso % (Auto) 0.2 Lymph # (Auto) 2.7 [place] # (Auto) 0.6 Eos # (Auto) 0.0 Baso # (Auto) 0.0 Abs Immat Gran (auto) 0.06 H Absolute Neuts (auto) 5.1 Absolute Nucleated RBC 0.000 Nucleated RBC % (auto) 0.0 Sodium 143 Potassium 4.1 Chloride 108 Carbon Dioxide 24 Anion Gap 15 BUN 11 Creatinine 0.77 Estim Creat Clear Calc 100.5 Estimated GFR > 60 Random Glucose 74 Estimat Average Glucose Hemoglobin A1c % Calcium 10.0 D Total Bilirubin Direct Bilirubin AST ALT Alkaline Phosphatase Total Protein Albumin Triglycerides Cholesterol LDL Cholesterol, Calc HDL Cholesterol Lipase Vitamin B12 Folate TSH Urine Color Urine Appearance Urine pH Ur Specific [place] Urine Protein Urine Glucose (UA) Urine Ketones Urine Blood Urine Nitrite Ur Leukocyte Esterase Urine Test Urine Opiates Screen Urine Fentanyl Screen Ur Barbiturates Screen Valproic Acid Ur Phencyclidine Scrn Ur Amphetamines Screen U Benzodiazepines Scrn Urine Cocaine Screen U Marijuana (THC) Screen Ethyl Alcohol 170 COVID-19 ([facility]) COVID-19 Clin Com Influenza Type A (PCR) Influenza Type B (PCR) RSV RNA Qual (PCR) SARS-CoV-2 RNA (RT-PCR) 05/24/21 05/24/21 05/24/21 19:46 19:46 19:47 WBC RBC Hgb Hct MCV MCH MCHC RDW Plt Count MPV Immature Gran % (Auto) Neut % (Auto) Lymph % (Auto) [place] % (Auto) Eos % (Auto) Baso % (Auto) Lymph # (Auto) [place] # (Auto) Eos # (Auto) Baso # (Auto) Abs Immat Gran (auto) Absolute Neuts (auto) Absolute Nucleated RBC Nucleated RBC % (auto) Sodium Potassium Chloride Carbon Dioxide Anion Gap BUN Creatinine Estim Creat Clear Calc Estimated GFR Random Glucose Estimat Average Glucose Hemoglobin A1c % Calcium Total Bilirubin 0.5 Direct Bilirubin 0.3 AST 25 D ALT 29 Alkaline Phosphatase 97 Total Protein 7.5 Albumin 4.6 Triglycerides Cholesterol LDL Cholesterol, Calc HDL Cholesterol Lipase 28 Vitamin B12 Folate TSH Urine Color Urine Appearance Urine pH Ur Specific [place] Urine Protein Urine Glucose (UA) Urine Ketones Urine Blood Urine Nitrite Ur Leukocyte Esterase Urine Test Urine Opiates Screen Urine Fentanyl Screen Ur Barbiturates Screen Valproic Acid < 2.0 L Ur Phencyclidine Scrn Ur Amphetamines Screen U Benzodiazepines Scrn Urine Cocaine Screen U Marijuana (THC) Screen Ethyl Alcohol COVID-19 (ROSALBA) Positive A COVID-19 Clin Com See Note Influenza Type A (PCR) Influenza Type B (PCR) RSV RNA Qual (PCR) SARS-CoV-2 RNA (RT-PCR) 05/24/21 05/24/21 05/24/21 19:47 19:47 19:47 WBC RBC Hgb Hct MCV MCH MCHC RDW Plt Count MPV Immature Gran % (Auto) Neut % (Auto) Lymph % (Auto) [place] % (Auto) Eos % (Auto) Baso % (Auto) Lymph # (Auto) [place] # (Auto) Eos # (Auto) Baso # (Auto) Abs Immat Gran (auto) Absolute Neuts (auto) Absolute Nucleated RBC Nucleated RBC % (auto) Sodium Potassium Chloride Carbon Dioxide Anion Gap BUN Creatinine Estim Creat Clear Calc Estimated GFR Random Glucose Estimat Average Glucose Hemoglobin A1c % Calcium Total Bilirubin Direct Bilirubin AST ALT Alkaline Phosphatase Total Protein Albumin Triglycerides Cholesterol LDL Cholesterol, Calc HDL Cholesterol Lipase Vitamin B12 Folate TSH Urine Color YELLOW Urine Appearance CLEAR Urine pH 6.0 Ur Specific [place] <= 1.005 Urine Protein NEG Urine Glucose (UA) NEG Urine Ketones NEG Urine Blood NEG Urine Nitrite NEG Ur Leukocyte Esterase NEG Urine Test NEGATIVE Urine Opiates Screen Not Detected Urine Fentanyl Screen Not Detected Ur Barbiturates Screen Not Detected Valproic Acid Ur Phencyclidine Scrn Not Detected Ur Amphetamines Screen Not Detected U Benzodiazepines Scrn Not Detected Urine Cocaine Screen Not Detected U Marijuana (THC) Screen Not Detected Ethyl Alcohol COVID-19 ([facility]) COVID-19 Clin Com Influenza Type A (PCR) Influenza Type B (PCR) RSV RNA Qual (PCR) SARS-CoV-2 RNA (RT-PCR) 05/25/21 05/26/21 05/26/21 16:32 08:59 08:59 WBC RBC Hgb Hct MCV MCH MCHC RDW Plt Count MPV Immature Gran % (Auto) Neut % (Auto) Lymph % (Auto) [place] % (Auto) Eos % (Auto) Baso % (Auto) Lymph # (Auto) [place] # (Auto) Eos # (Auto) Baso # (Auto) Abs Immat Gran (auto) Absolute Neuts (auto) Absolute Nucleated RBC Nucleated RBC % (auto) Sodium Potassium Chloride Carbon Dioxide Anion Gap BUN Creatinine Estim Creat Clear Calc Estimated GFR Random Glucose Estimat Average Glucose 82 Hemoglobin A1c % 4.5 Calcium Total Bilirubin Direct Bilirubin AST ALT Alkaline Phosphatase Total Protein Albumin Triglycerides 105 Cholesterol 131 LDL Cholesterol, Calc 65 HDL Cholesterol 45 Lipase Vitamin B12 Folate TSH 2.02 Urine Color Urine Appearance Urine pH Ur Specific [place] Urine Protein Urine Glucose (UA) Urine Ketones Urine Blood Urine Nitrite Ur Leukocyte Esterase Urine Test Urine Opiates Screen Urine Fentanyl Screen Ur Barbiturates Screen Valproic Acid Ur Phencyclidine Scrn Ur Amphetamines Screen U Benzodiazepines Scrn Urine Cocaine Screen U Marijuana (THC) Screen Ethyl Alcohol COVID-19 (ROSAL[facility]) Negative COVID-19 Clin Com See Note Influenza Type A (PCR) Influenza Type B (PCR) RSV RNA Qual (PCR) SARS-CoV-2 RNA (RT-PCR) 05/26/21 05/27/21 08:59 12:08 WBC RBC Hgb Hct MCV MCH MCHC RDW Plt Count MPV Immature Gran % (Auto) Neut % (Auto) Lymph % (Auto) [place] % (Auto) Eos % (Auto) Baso % (Auto) Lymph # (Auto) [place] # (Auto) Eos # (Auto) Baso # (Auto) Abs Immat Gran (auto) Absolute Neuts (auto) Absolute Nucleated RBC Nucleated RBC % (auto) Sodium Potassium Chloride Carbon Dioxide Anion Gap BUN Creatinine Estim Creat Clear Calc Estimated GFR Random Glucose Estimat Average Glucose Hemoglobin A1c % Calcium Total Bilirubin Direct Bilirubin AST ALT Alkaline Phosphatase Total Protein Albumin Triglycerides Cholesterol LDL Cholesterol, Calc HDL Cholesterol Lipase Vitamin B12 413 Folate 8.5 TSH Urine Color Urine Appearance Urine pH Ur Specific [place] Urine Protein Urine Glucose (UA) Urine Ketones Urine Blood Urine Nitrite Ur Leukocyte Esterase Urine Test Urine Opiates Screen Urine Fentanyl Screen Ur Barbiturates Screen Valproic Acid Ur Phencyclidine Scrn Ur Amphetamines Screen U Benzodiazepines Scrn Urine Cocaine Screen U Marijuana (THC) Screen Ethyl Alcohol COVID-19 ([facility]) COVID-19 Clin Com Influenza Type A (PCR) NEGATIVE Influenza Type B (PCR) NEGATIVE RSV RNA Qual (PCR) NEGATIVE SARS-CoV-2 RNA (RT-PCR) NEGATIVE DS: Summary Hospital Course Hospital Course: HPI Subjective Notes: Mays Warning, Conditional Voluntary and 3 Day Narrative: Ms. Russo is a 26 year-old female who initially called care team reporting SI with plan to OD. She was transported via EMS on section 12 to [facility]. Pt reported precipitating factors recent of her grandfather 2 days before her birthday and problems with current partner. In the ED, BAL 170. Utox was negative, but there is hx of positive cocaine in past. On the unit, Ms. Russo presents as irritable. She expresses her frustration over receiving a higher dose of depakote 250mg po BID. She reports she only take 250mg po qhs, even though this dose is subtherapeutic. She describes mood as pissed. She reports she was saddened by passing of her grandfather few days after her birthday. She does acknowledge problems with partner but would not elaborate. She adamantly denies suicidal ideation or plan or intent to hurt herself. Pt irritable and minimally cooperative at times when gathering information related to alcohol use, since she reports has significantly increase. She reports she does not know. She denies symptoms of alcohol withdrawal She denies hx of VH/AH. She reports appetite is okay. She has been mostly in her room. She signed 3 day notice. She reports medications are not the problem. She wants to continue current medications. HOSPITAL COURSE On the unit, Ms. Russo was admitted on a CV and 3 day notice and placed on 15 minutes checks for safety. Pt initially superficially cooperative. She later reported recent of grandfather and problems with significant other as triggers for depression. She also reported using alcohol more often which in turn affect her mood. During the hospitalization, pt spoke with significant other, which later Ms. Russo reported was very supportive of her treatment. We discussed risks, benefits and alternative treatment options. We discussed Ms. Russo tendency to be impulsive, irritable explosive at times, and how depakote or other mood stabilizer could help with these symptoms. Pt declined increasing dose of depakote. She reported in past she has been too sedated on higher doses of depakote. We discussed other mood stabilizer such as lithium or trileptal but pt declined. She reported current increased depression and recent SI related to external factor. However, pt noted to have poor coping skills and ability to self regulate when in distress which increases risk of chronic self harm due to impulsivity and lack of insight. She denied AH/VH and did not appear internally preoccupied. She agreed to continue OP psych treatment with providers at [facility]. There were no incidences of disruptive behaviors nor use of restraints. Ms. Russo was offered referrals for alcohol use treatment but she declines as she did not think it was a problem. Status at Discharge Cognitive/behavioral status at discharge: Pt with brighter affect, non labile. She denies SI/HI. She denies VH/AH- no signs of responding to internal stimuli. Pt sleeping and eating well. No signs of aggression towards self or others. Functional status at discharge: independent ambulation Overall status at discharge: patient is progressing back to baseline Time Spent with Patient Time attestation: Total time spent providing and/or coordinating discharge services: Time spent: Greater than 30 minutes Discharge Plan Discharge Patient Disposition: Home, Self-Care Discharge Diagnosis: Bipolar II Disorder Referrals: Center,[facility] [Physician] - 1 Week Discharge Medications: New divalproex 250 mg Tablet,Delayed Release (Dr/Ec) 250 mg PO BEDTIME Qty: 30 0RF naltrexone 50 mg Tablet 50 mg PO DAILY Qty: 30 0RF melatonin 3 mg Tablet 6 mg PO BEDTIME Qty: 60 0RF Discontinued divalproex 250 mg Tablet,Delayed Release (Dr/Ec) 250 mg PO BID Qty: 14 4RF escitalopram oxalate 5 mg tablet 1 tab PO DAILY 0RF Discharge Orders: Discharge Order (Routine); Ordered 05/27/21 Ordered By: Cheyanne Guardado Diet: advance to usual diet Activity on Discharge: As tolerated Stand Alone Forms: Patient Portal Discharge page, Community Support Care Plan Goals: 1. maintain mood 2. No SI/HI No signs of aggression towards self or others Health Concerns: follow up with PCP Plan of Treatment: take medications as prescribed go to nearest ED or call 911 in event of emergency Assessment: Pt dysphoric at times, no SI/HI. No aggression towards self or others. Pt reports feeling calmer, increasingly more future oriented motivated to decrease alcohol. Discharge Date/Time: 05/27/21 16:53
== END 2021-05-27 16:53 | disposition home or self-care (01) | DRG 885 ==
LOC: HO.ED 05-25 18:29 → HO.PADLT16 05-25 18:32
PROVIDERS: Nurse Practitioner Family; Physician Assistant; Admitting Provider Psychiatry & Neurology Psychiatry; Emergency Provider Internal Medicine; Visit Provider Social Worker
DX: F31.81 Bipolar II disorder (principal); R45.851 Suicidal ideations; E78.5 Hyperlipidemia, unspecified; E03.9 Hypothyroidism, unspecified; F10.920 Alcohol use, unspecified with intoxication, uncomplicated; E11.9 Type 2 diabetes mellitus without complications; Z88.0 Allergy status to penicillin; Z79.899 Other long term (current) drug therapy
CPT/HCPCS: 0241U; 36415; 80048; 80061; 80076; 80164; 80307; 81003; 81025; 82077; 82607; 82746; 83036; 83690; 84443; 85025; 87635; 93005; 96372; 99285; J0696; J2060

== ENCOUNTER 2022-09-08 17:22 | Emergency (ER) | payer OTHER, SELFPAY ==
[2022-09-08 17:41] VITALS: BP 116/79; PULSE 92; RESP 18; TEMP 37; O2SAT 99; BMI 25.0
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
[2022-09-08] MEDS: Diphth,Pertus(ACell),Tet Adult 0.5 ML SYRINGE IM (18:00)
[2022-09-08] MEDS: Bacitracin Oint 0.9 GM PACKET 1 APPL TOPICAL (18:09)
== END 2022-09-08 18:21 | disposition home or self-care (01) ==
PROVIDERS: Emergency Provider Emergency Medicine
DX: S80.811A Abrasion, right lower leg, initial encounter (principal); V28.09XA Other motorcycle driver injured in noncollision transport accident in nontraffic accident, initial encounter; F17.210 Nicotine dependence, cigarettes, uncomplicated; Y93.89 Activity, other specified; Y92.414 Local residential or business street as the place of occurrence of the external cause; Y99.9 Unspecified external cause status
CPT/HCPCS: 90471; 90715; 99282; 99284

== ENCOUNTER 2023-05-24 13:05 | Outpatient (AMB) | payer OTHER, SELFPAY ==
[2023-05-24 13:13] VITALS: BP 112/70; PULSE 60; O2SAT 99; BMI 26.6
--- NOTE | 2023-05-24 13:13 | AM.OFFWIN_ITS ---
Intake Vital Signs 3 05/24/23 13:13 Height 5 ft 5 in Weight 160 lb BMI 26.6 BP 112/70 Blood Pressure Location Lt brachial Position Sitting Pulse 60 Pulse Source Pulse Oximeter Pulse Oximetry (%) 99 Oxygen Delivery Method Room Air Intake Visit Reasons: EP Bump on LT breast Intake Note: pt is here today for bump on lft breast started 5 days ago Patient Tobacco Use Status: Current everyday Tobacco user Allergies penicillin V Allergy (Unknown, Verified 05/24/23 13:14) hives Penicillins [PENICILLINS] Allergy (Unknown, Verified 05/24/23 13:14) HIVES Do you need a note to return to daycare/school/sports/work: No HPI HPI Comments 2 History of Present Illness0 Details 28 y/o female presents to walk in clinic with c/o left breat lump x 5 days. PFSH Medical History Asthma Screening for diabetes mellitus Screening for hyperlipidemia Screening for hypothyroidism Surgical History No pertinent past surgical history Family History Father Liver failure H/O ETOH abuse Drug addiction Mother Cancer Drug addiction Brother Drug overdose Social History Household Members: None Housing: Apartment Do you presently have visiting nurse or other home services: No Alcohol intake: current Alcohol intake frequency: 0-2 drinks per day Comment: 1:1 sitter Patient Tobacco Use Status: Current everyday Tobacco user Tobacco use type: Cigarette Cigarette Packs Per Day: 0 Cigarettes Per Day: 2 e-Cigarette/Vaping Use: Never Used Second Hand Smoke Exposure: No Substance Use Type: Marijuana service: No Current occupational status: unemployed Sexual orientation: Lesbian/Pierce/Homosexual Physical Exam Vital Signs: Last Vital Signs Pulse 60 05/24/23 13:13 BP 112/70 05/24/23 13:13 Pulse Ox 99 05/24/23 13:13 Oxygen Delivery Method Room Air 05/24/23 13:13 BMI result Body Mass Index 26.6 Const General: comfortable and no acute distress Chest Chest palpation & inspection: mass (Mass left breast ) left Breast/axilla inspection: abnormal inspection of the breast and Other (Left Breast, lump between 3 and 4 o'clock, soft mobile, round ) Breast/axilla palpation: axillary lymphadenopathy not noted Chest/axillae images: 2 1. small,a size of golf ball, round, soft mass and mobile. Resp Effort & Inspection: normal respiratory effort Assessment & Plan Assessment & Plan (1) Lump of breast, left: Code(s): N63.20 - Unspecified lump in the left breast, unspecified quadrant Qualifiers: Breast mass location: upper outer quadrant Qualified Code(s): N63.21 - Unspecified lump in the left breast, upper outer quadrant Plan: - [facility]oni Diagnostic Mammo with left breast U/S Orders: Orders 2 US breast LT complete Today N63.21 - Unspecified lump in the left breast, upper outer quadrant MM diagnostic mammo BI Today N63.21 - Unspecified lump in the left breast, upper outer quadrant Coding Level of Care Code Est Pt Level 3 (17331) Diagnoses Mass of upper outer quadrant of left breast N63.21 Breast mass location: upper outer quadrant Time Spent (min) 15
== END 2023-05-24 14:45 | disposition home or self-care (01) ==
PROVIDERS: Visit Provider Nurse Practitioner Family
DX: N63.21 Unspecified lump in the left breast, upper outer quadrant (principal)
CPT/HCPCS: 99213

== ENCOUNTER 2023-06-01 13:46 | Outpatient (REF) | payer OTHER, SELFPAY ==
--- NOTE | ~2023-06-01 | US_ITS ---
EXAMINATION: US DIAGNOSTIC ULTRASOUND BREAST, LEFT CLINICAL INFORMATION: 28-year-old female complaining of palpable lump left breast, upper outer quadrant between 3:00 and 4:00 axes, tender, soft, mobile, and approximately the size of a golf ball according to the patient.. COMPARISON: None. TECHNIQUE: Ultrasound of the left breast is performed with real-time cole scale imaging and color Doppler. Attention was given to the region of palpable concern in the upper outer quadrant of the left breast. FINDINGS: There is no focal suspicious finding. There is no solid mass, architectural abnormality, duct ectasia, or edema in the soft tissue planes. There is no cystic abnormality. There is a ridge of dense fibroglandular tissue present, which may be what the patient is palpating. There is otherwise no correlate to the palpable focus of concern in the upper outer quadrant left breast. US/US breast LT limited mamm only IMPRESSION: No findings suspicious for malignancy. No ultrasound correlate to the focus of palpable concern in the left breast upper outer quadrant. Recommend clinical management. ASSESSMENT: BI-RADS 1 - Negative RECOMMENDATION: 1. Patient should be managed based on the clinical impression. Decision to proceed with biopsy should be based on clinical grounds and degree of clinical concern.
== END 2023-06-01 13:47 | disposition home or self-care (01) ==
LOC: HO.MAMMO 13:46
PROVIDERS: PCP Nurse Practitioner Family; Visit Provider Nurse Practitioner Family
DX: N63.21 Unspecified lump in the left breast, upper outer quadrant (principal)
CPT/HCPCS: 76642

== ENCOUNTER → 2023-06-01 14:00 | Outpatient (BNV) | payer OTHER, SELFPAY | PROVIDERS: PCP Nurse Practitioner Family; Visit Provider Radiology Diagnostic Radiology | DX: N63.25 Unspecified lump in the left breast, overlapping quadrants (principal) | CPT/HCPCS: 76642 ==

== ENCOUNTER 2023-08-02 20:37 | Emergency (ER) | payer OTHER, SELFPAY ==
[2023-08-02 20:48] VITALS: BP 146/92; PULSE 120; O2SAT 98; BMI 26.6
--- NOTE | 2023-08-02 21:20 | ED.PSYCH ---
HPI - Psych General Chief Complaint: ETOH/Substance Use Stated Complaint: ETOH AND DRUG USE Time Seen by Provider: 08/02/23 20:49 Source: patient and EMS Mode of arrival: EMS Limitations: other (Psychosis) History of Present Illness HPI Narrative: Patient comes to the emergency room complaining feeling weird, patient states that she was smoking marijuana and believes it was laced with something. Patient states that she feels like electric shocks or running throughout her body. Also patient states that she did drink alcohol today. Patient called 911 patient denies SI or HI. Patient denies being on any medications Related Data Allergies Allergy/AdvReac Type Severity Reaction Status Date / Time penicillin V Allergy Unknown hives Verified 08/02/23 20:57 Penicillins [PENICILLINS] Allergy Unknown HIVES Verified 08/02/23 20:57 Review of Systems Review of Systems: Constitutional : No Weight loss, No Fever, No Chills, No Night Sweats, No Fatigue, No Malaise ENT/Mouth : No Hearing loss, No Ear Pain, No Nasal Congestion, No Sinus Pain, No Hoarseness, No sore throat, No Rhinorrhea, No Swallowing Difficulty Eyes: No Eye Pain, No Swelling, No Redness, No Foreign Body, No Discharge, No Vision Changes Cardiovascular : No Chest Pain, No SOB, No Dyspnea on Exertion, No Orthopnea, No Edema, No Palpitations Respiratory : No Cough, No Sputum, No Wheezing, No Smoke Exposure, No Dyspnea Gastrointestinal : No Nausea, No Vomiting, No Diarrhea, No Constipation, No abdominal Pain, No Hematochezia, No Melena Genitourinary : no irregular bleeding, No Dysuria, No Urinary Frequency, No Hematuria, No Urinary Incontinence, No Urgency, No Flank Pain, No Urinary Flow Changes, No Hesitancy Musculoskeletal : No joint pain, No Myalgias, No Joint Swelling Skin : No Skin Lesions, No rash Neuro : No Weakness, No Numbness, No Paresthesias, No Loss of Consciousness, No Dizziness, No Headache Psych : No Anxiety/Panic, No Depression, No SI/HI/AH/VH, admits to marijuana use, believes it was laced Heme/Lymph: No Bruising, No Bleeding,No Lymphadenopathy Endocrine : No Polyuria, No Polydipsia, No Temperature Intolerance PMFSH Past Medical History Medical History Screening for hypothyroidism Screening for hyperlipidemia Screening for diabetes mellitus Asthma Surgical History No pertinent past surgical history Family History Family History Father Liver failure H/O ETOH abuse Drug addiction Mother Cancer Drug addiction Brother Drug overdose Social History Social History Household Members: None Housing: Apartment Do you presently have visiting nurse or other home services: No Alcohol intake: current Alcohol intake frequency: a few times a week Comment: 1:1 sitter Patient Tobacco Use Status: Current everyday Tobacco user Tobacco use type: Cigarette Cigarette Packs Per Day: 0 Cigarettes Per Day: 2 Smoked in Last 30 Days: Yes e-Cigarette/Vaping Use: Never Used Second Hand Smoke Exposure: No Use of substances other than those prescribed or required for medical reasons: Yes Substance Use Type: Marijuana Substance Use Frequency: Daily Advance Directives: No Advance Directives Information Provided: No Patient : No service: No Current occupational status: unemployed Sexual orientation: Lesbian/Pierce/Homosexual Physical Exam Vital Signs: Vital Signs: BMI result Body Mass Index 26.6 Const: Other: Appearance: Alert. Oriented X3. No acute distress. Eyes: Pupils equal, round and reactive to light. ENT: Pharynx normal. Neck: Normal inspection. Neck supple. No lymph nodes noted. No crepitus CVS: Normal heart rate and rhythm. Pulses normal. Normal S1 and S2 Respiratory: No respiratory distress. Breath sounds normal. No Wheezing. No rales Abdomen: Soft and nontender. No rigidity. No distention. Skin: Skin warm and dry. Normal skin color. Normal skin turgor. Extremities: No lower extremity edema. No Lacerations. No Rash Neuro: Oriented X 3. No motor deficit. No sensory deficit. Moving all extremities. No slurred speech. CN 2 through 12 grossly intact Psych: calm, cooperative, anxious Course Reevaluation(s) Reevaluation #1: -patient denies SI or HI -all of patient's labs pending -it is likely that patient will need a crisis evaluation. Medical Decision Making Medical Decision Making MDM Narrative: -patient's hematology does not show any acute abnormalities. Patient's urine is a contaminant, antibiotics not indicated, urine toxicology positive for PCP, cocaine and marijuana. -patient's chemistries pending. Patient states that she does not want to wait for the results and would like to be discharged home. -care team was offered to the patient, patient declined -patient is alert and oriented x3, not suicidal or homicidal, no need for a section 12. Differential Diagnosis Differential Diagnoses: The differential diagnosis associated with the presentation includes (Polysubstance abuse) Lab Data 08/02/23 21:15 08/02/23 21:15 Labs: Lab Results 08/02/23 Range/Units 21:15 WBC 9.3 (4.8-10.8) X10*3/uL RBC 4.15 L (4.20-5.50) X10*6/uL Hgb 13.4 (12.0-16.0) g/dl Hct 38.1 (37.0-47.0) % MCV 91.8 (80.0-98.0) fL MCH 32.3 (27.0-33.0) pg MCHC 35.2 H (31.0-35.0) g/dl RDW 13.1 (11.0-16.0) % Plt Count 221 (160-400) X10*3/uL MPV 9.1 L (9.4-12.3) fL Immature Gran % (Auto) 0.3 (0.0-0.4) % Neut % (Auto) 71.3 (45-73) % Lymph % (Auto) 22.1 (20-40) % [place] % (Auto) 5.0 (2-11) % Eos % (Auto) 1.0 (0-4) % Baso % (Auto) 0.3 (0-2) % Lymph # (Auto) 2.1 (1.2-4.9) X10*3/uL [place] # (Auto) 0.5 (0.1-1.2) X10*3/uL Eos # (Auto) 0.1 (0.0-0.4) X10*3/uL Baso # (Auto) 0.0 (0.0-0.2) X10*3/uL Abs Immat Gran (auto) 0.03 (0.00-0.03) X10*3/uL Absolute Neuts (auto) 6.6 (2.0-8.3) x10*3/uL Absolute Nucleated RBC 0.000 (0.0-0.012) X10*3/uL Nucleated RBC % (auto) 0.0 (0.0-0.2) /100WBC Urine Color Dark Yellow Urine Appearance Clear Urine pH 5.5 (5.0-9.0) Ur Specific [place] 1.025 (1.005-1.025) Urine Protein Trace (Neg-Trace) mg/dL Urine Glucose (UA) Negative (Negative) mg/dL Urine Ketones Trace (Negative) mg/dL Urine Blood Negative (Negative) Urine Nitrite Negative (Negative) Ur Leukocyte Esterase Small (1+) H (Negative) Urine RBC 0-2 (0-2) /HPF Urine WBC 21-50 H (0-5) /HPF Ur Squamous Epith Cells 11-20 (0-2) /HPF Urine Bacteria None Seen (None Seen) Hyaline Casts 0-2 (0-2) /LPF Urine Opiates Screen Not Detected (Not Detect) Urine Fentanyl Screen Not Detected (Not Detect) Ur Barbiturates Screen Not Detected (Not Detect) Ur Phencyclidine Scrn POSITIVE H (Not Detect) Ur Amphetamines Screen Not Detected (Not Detect) U Benzodiazepines Scrn Not Detected (Not Detect) Urine Cocaine Screen POSITIVE H (Not Detect) U Marijuana (THC) Screen POSITIVE H (Not Detect) Discharge Plan Discharge Clinical Impression: Polysubstance abuse Patient Disposition: Home, Self-Care Instructions: Polysubstance Abuse (ED) Additional Instructions: Please follow-up with your primary care physician tomorrow. If you have any worsening or new symptoms, please return to the emergency room or call 911 Print Language: Sammarinese
[2023-08-02 21:35] LABS: MANUAL DIFF FLAG NO
[2023-08-02 21:36] LABS: Basophils Percent Auto 0.3 % (0-2); Eosinophils Absolute Auto 0.1 X10*3/uL (0.0-0.4); Hematocrit 38.1 % (37.0-47.0); Hemoglobin 13.4 g/dl (12.0-16.0); Imm Gran Abs Auto 0.03 X10*3/uL (0.00-0.03); Imm Gran Pct Auto 0.3 % (0.0-0.4); Lymphocytes Absolute Auto 2.1 X10*3/uL (1.2-4.9); Lymphocytes Percent Auto 22.1 % (20-40); Mean Corpuscular HGB Conc 35.2 g/dl (31.0-35.0); Mean Corpuscular Hemoglobin 32.3 pg (27.0-33.0); Mean Corpuscular Volume 91.8 fL (80.0-98.0); Mean Platelet Volume 9.1 fL (9.4-12.3); Monocytes Absolute Auto 0.5 X10*3/uL (0.1-1.2); Neutrophils Absolute Auto 6.6 x10*3/uL (2.0-8.3); Neutrophils Percent Auto 71.3 % (45-73); Platelet Count 221 X10*3/uL (160-400); Red Blood Count 4.15 X10*6/uL (4.20-5.50); Red Cell Distribution Width 13.1 % (11.0-16.0); White Blood Count 9.3 X10*3/uL (4.8-10.8)
[2023-08-02 21:37] LABS: Appearance Urine Clear; Color Urine Dark Yellow; Glucose Urine UA Negative (Negative); Leukocyte Esterase Urine Small (1+) (Negative); Nitrite Urine Negative (Negative); PH 5.5 (5.0-9.0); Specific Gravity - Urine 1.025 (1.005-1.025); UMIC TRIGGER UACC YES; Urine Blood Negative (Negative); Urine Ketones Trace mg/dL (Negative); Urine Protein Trace mg/dL (Neg-Trace)
[2023-08-02 21:44] LABS: Amphetamine Screen Urine Not Detected (Not Detect); Barbiturates, Urine Not Detected (Not Detect); Benzodiazepines Screen Urine Not Detected (Not Detect); Cannabinoid Screen Urine POSITIVE (Not Detect); Cocaine Screen Urine POSITIVE (Not Detect); Fentanyl, urine Not Detected (Not Detect); Opiate Screen Urine Not Detected (Not Detect); Phencyclidine Screen Urine POSITIVE (Not Detect)
[2023-08-02 21:45] LABS: Bacteria Urine None Seen (None Seen); Hyaline Casts Urine 0-2 /LPF (0-2); RBC Urine 0-2 /HPF (0-2); UACC Culture Trigger YES; WBC Urine 21-50 /HPF (0-5)
[2023-08-02 21:54] LABS: Alanine Aminotransferase 17 U/L (0-31); Albumin Level 4.5 g/dL (3.5-5.0); Alkaline Phosphatase 90 U/L (39-117); Anion Gap 17 (12-20); Aspartate Amino Transferase 22 U/L (5-31); Bilirubin Total 0.7 mg/dL (0.0-1.0); Blood Urea Nitrogen 12 mg/dL (9-16); Calcium 9.3 mg/dL (8.4-10.2); Carbon Dioxide 19 mmol/L (22-29); Chloride 110 mmol/L (96-108); Estimated Glomerular Filt Rate > 60; Ethanol < 10 mg/dL; Glucose Random 79 mg/dL (60-115); Sodium 142 mmol/L (135-145); Total Protein 7.4 g/dL (6.5-8.0)
[2023-08-02 22:06] VITALS: BP 136/82; PULSE 92; RESP 14; TEMP 36.9; O2SAT 98
[2023-08-02 23:38] LABS: HCG Quantitative < 2 mIU/mL
== END 2023-08-02 22:07 | disposition home or self-care (01) ==
PROVIDERS: Emergency Provider Emergency Medicine
DX: F12.19 Cannabis abuse with unspecified cannabis-induced disorder (principal); R93.49 Abnormal radiologic findings on diagnostic imaging of other urinary organs; Z79.899 Other long term (current) drug therapy; Z71.51 Drug abuse counseling and surveillance of drug abuser; Z51.81 Encounter for therapeutic drug level monitoring
CPT/HCPCS: 80053; 80307; 81001; 84702; 85025; 87086; 87147; 99284

== ENCOUNTER 2024-02-06 01:05 | Emergency (ER) | payer OTHER, SELFPAY ==
[2024-02-06 01:08] VITALS: BP 148/96; PULSE 84; O2SAT 97
[2024-02-06 01:10] VITALS: BP 147/103; PULSE 67; RESP 18; TEMP 36.8; O2SAT 97; BMI 26.6
== END 2024-02-06 01:45 | disposition left against medical advice (07) ==
LOC: HO.ED 01:42
PROVIDERS: Emergency Provider Emergency Medicine
DX: R10.9 Unspecified abdominal pain (principal); Z53.21 Procedure and treatment not carried out due to patient leaving prior to being seen by health care provider
CPT/HCPCS: 99281